=== PATIENT | male | born 1955 | race Caucasian/White ===

== ENCOUNTER 2016-03-09 14:25 | Inpatient (IN) | payer MEDICARE, OTHER ==
[2016-03-09 14:29] VITALS: BMI 23.3
--- NOTE | 2016-03-09 14:54 | PDOC ---
History of Present Illness - History of Present Illness Initial Comments: 03/09/16 15:22 The patient is a 60 year old male with significant past medical history of CAD, hypertension, hyperlipidemia who presents to the emergency department with headache, blurry vision, and chest pain for 1 day. The patient states that he is experiencing chest pain that radiates up to his left shoulder and left face. He also reports a headache and associated double vision and blurry vision. His headache is localized to behind his left eye and described as sharp. He reports he is seeing images that are on top of each other. The patient took Nitro for his chest pain with some relief. The patient states that he hasnt fallen but does report LOC when he was going to the bathroom this morning. He states he almost crashed his car this afternoon because of his blurry vision. The patient denies any associated shortness of breath. The patient denies cough, nasal congestion, recent illness, fevers, and chills. The patient denies any abdominal pain, nausea, vomiting. The patietn is an everyday drinker. He states his last drink was last night and he had about 3 beers. He says he drinks 3-4 drinks a day. Packing Clerk: Dr. Aleman <Carolee Urbina - Last Filed: 03/09/16 15:21> - General History Source: Patient, Old Records Exam Limitations: No Limitations <Virgie Conteh - Last Filed: 03/09/16 19:36> - General Chief Complaint: CVA/TIA Stated Complaint: CHEST PAIN Time Seen by Provider: 03/09/16 14:31 Past History <Carolee Urbina - Last Filed: 03/09/16 15:21> - Past Medical History Anemia: No Asthma: No Cancer: No Cardiac Disorders: Yes (CAD) CVA: No COPD: No (PT DENIES) CHF: No Dementia: No Diabetes: No GI Disorders: No Disorders: No HTN: Yes Hypercholesterolemia: No Liver Disease: No Seizures: No Thyroid Disease: No - Surgical History Abdominal Surgery: Yes (HERNIA) Appendectomy: No Cardiac Surgery: No Cholecystectomy: No Lung Surgery: No Neurologic Surgery: No Orthopedic Surgery: Yes (Back surgery) - Immunization History Immunization Up to Date: Yes - Psycho/Social/Smoking Cessation Hx Anxiety: No Suicidal Ideation: No Smoking History: Current every day smoker Have you smoked in the past 12 months: Yes Number of Cigarettes Smoked Daily: 2 Information on smoking cessation initiated: No 'Breaking Loose' booklet given: 04/21/13 Hx Alcohol Use: No Drug/Substance Use Hx: No Substance Use Type: None Hx Substance Use Treatment: No <Virgie Conteh - Last Filed: 03/09/16 19:36> - Past Medical History Allergies/Adverse Reactions: Allergies Allergy/AdvReac Type Severity Reaction Status Date / Time Penicillins Allergy Verified 03/09/16 14:29 octopus Allergy Severe Hives Uncoded 03/09/16 14:29 [place] Allergy Mild Hives Uncoded 03/09/16 14:29 Home Medications: Ambulatory Orders Aspirin Coated [Ecotrin -] 81 mg PO DAILY 04/21/13 Eszopiclone [Lunesta] 3 mg PO HS 04/21/13 Nebivolol HCl [Bystolic] 5 mg PO DAILY 04/21/13 Simvastatin [Zocor -] 10 mg PO HS 04/21/13 Clopidogrel Bisulfate [Plavix -] 75 mg PO DAILY #30 tablet 02/03/14 Fluocinonide 0.05% Cream [Lidex 0.05% Cream -] 1 applic TP DAILY #1 tube Tramadol HCl [Tramadol HCl ER] 300 mg PO DAILY #30 tbmp.24hr 02/03/14 Azelastine/Fluticasone [Dymista Nasal [place]] 23 gm NS DAILY 08/27/14 Clonidine HCl 0.1 mg PO DAILY 08/27/14 Esomeprazole Mag Trihydrate [Nexium] 40 mg PO DAILY 08/27/14 Oxycodone HCl/Acetaminophen [Percocet 10-325 mg Tablet] 1 - 2 tab PO Q6H Esomeprazole Mag Trihydrate [Nexium] 40 mg PO DAILY #7 capsule 02/02/15 Ondansetron [Zofran *Odt*] 8 mg SL TID #20 od.tablet 02/02/15 Review of Systems - Review of Systems Able to Perform ROS?: Yes Comments:: 03/09/16 15:22 GENERAL/CONSTITUTIONAL: No fever or chills. No weakness. HEAD, EYES, EARS, NOSE AND THROAT: No change in vision. No ear pain or discharge. No sore throat. CARDIOVASCULAR: No chest pain or shortness of breath. RESPIRATORY: No cough, wheezing, or hemoptysis. GASTROINTESTINAL: No nausea, vomiting, diarrhea or constipation. GENITOURINARY: No dysuria, frequency, or change in urination. MUSCULOSKELETAL: No joint or muscle swelling or pain. No neck or back pain. SKIN: No rash NEUROLOGIC: No headache, vertigo, loss of consciousness, or change in strength/ sensation. ENDOCRINE: No increased thirst. No abnormal weight change. HEMATOLOGIC/LYMPHATIC: No anemia, easy bleeding, or history of blood clots. ALLERGIC/IMMUNOLOGIC: No hives or skin allergy. <Carolee Urbina - Last Filed: 03/09/16 15:21> *Physical Exam - Vital Signs Last Vital Signs Temp Pulse Resp BP Pulse Ox 97.8 F 65 20 168/82 100 03/09/16 14:26 03/09/16 14:26 03/09/16 14:03/09/16 14:03/09/16 15:00 - Physical Exam Comments: 03/09/16 15:22 GENERAL: Awake, alert, and fully oriented, in no acute distress HEAD: No signs of trauma EYES: PERRLA, EOMI, sclera anicteric, conjunctiva clear ENT: Auricles normal inspection, hearing grossly normal, nares patent, oropharynx clear without exudates. Moist mucosa NECK: Normal ROM, supple, no lymphadenopathy, JVD, or masses LUNGS: Breath sounds equal, clear to auscultation bilaterally. No wheezes, and no crackles HEART: Regular rate and rhythm, normal S1 and S2, no murmurs, rubs or gallops ABDOMEN: Soft, nontender, normoactive bowel sounds. No guarding, no rebound. No masses EXTREMITIES: Normal range of motion, no edema. No clubbing or cyanosis. No cords, erythema, or tenderness NEUROLOGICAL: Cranial nerves II through XII grossly intact. 4+/5 strength in all extremities. Normal speech, normal gait SKIN: Warm, Dry, normal turgor, no rashes or lesions noted. <Carolee Urbina - Last Filed: 03/09/16 15:21> - Vital Signs Last Vital Signs Temp Pulse Resp BP Pulse Ox 97.8 F 65 20 168/82 100 03/09/16 14:26 03/09/16 14:03/09/16 14:26 03/09/16 14:26 03/09/16 14:26 <YadyVirgie - Last Filed: 03/09/16 19:36> ED Treatment Course - LABORATORY CBC & Chemistry Diagram: 03/09/16 15:00 03/09/16 15:00 <YadyVirgie - Last Filed: 03/09/16 19:36> Medical Decision Making - Medical Decision Making 03/09/16 15:38 60 y/o male with h/o HTN, non-obstructing CAD on cardiac cath in 2013 (at [facility]), PAD s/p left fem-tib bypass and left iliac stent, HLD and ETOH abuse who presents to the ED with c/o diplopia from the left eye and left-sided headache since yesterday as well as left-sided chest pain today. DDx includes but is not limited to: intra-cranial bleed, ischemia, mass, angina, electrolyte abnormality, dehydration, toxic/metabolic derangement, ACS. Plan: 1. EKG 2. Labs 3. CXR 4. CT head 5. Pain management 6. Observe and re-evaluate 03/09/16 18:24 Addendum: I spoke with Dr Rooney with the plan to admit him to observation for serial cardiac enzymes and cardiology consultation. However, the patient is angry and does not want to stay. I explained the risks and consequences to him leaving [facility] but he was still angry and I am uncertain as to why he is so angry and why he does not want to stay for admission. [see AMA note] 03/09/16 19:16 Addendum: The patient went upstairs to get food and returned to say that he will stay for admission. Will admit to tele observation as above. <Virgie Conteh - Last Filed: 03/09/16 19:36> *DC/Admit/Observation/Transfer - Attestations Scribe Attestion: 03/09/16 15:22 Documentation prepared by Carolee Urbina, acting as medical screener for Virgie Conteh MD. <Carolee Urbina - Last Filed: 03/09/16 15:21> - Discharge Dispostion Admit: Yes - Attestations Physician Attestion: 03/09/16 15:35 I, Dr. Virgie Conteh, attest that the scribes documentation that appears above has been prepared under my direction and personally reviewed by me in its entirety. I confirmed that the note above accurately reflects all work, treatment, procedures, and medical decision-making performed by me. <Virgie Conteh - Last Filed: 03/09/16 19:36> Diagnosis at time of Disposition: Headache, Chest pain - Discharge Dispostion Condition at time of disposition: Stable - Referrals Referrals: Mukesh Crenshaw [Primary Care Provider] -
[2016-03-09] MEDS ORDERED: ACETAMINOPHEN 500 MG TABLET (FP) PO ONE (14:55)
[2016-03-09] MEDS ORDERED: chlordiazePOXIDE HCL 25 MG CAPSULE PO ONE (14:56)
[2016-03-09 15:30] LABS: BASOPHIL 1.5 % (0-2.0); MCH 32.4 pg (25.7-33.7); MCHC 33.9 g/dl (32.0-35.9); MEAN CELL VOLUME 95.6 fl (80-96); PLATELET COUNT 313 K/MM3 (134-434); RDW 13.6 % (11.9-15.9); WHITE BLOOD COUNT 4.4 K/mm3 (4.0-10.0)
[2016-03-09 15:31] LABS: URINE APPEARANCE CLEAR; URINE BILIRUBIN NEGATIVE (NEGATIVE); URINE BLOOD NEGATIVE (NEGATIVE); URINE COLOR YELLOW; URINE GLUCOSE (UA) NEGATIVE (NEGATIVE); URINE KETONE NEGATIVE (NEGATIVE); URINE LEUK ESTERASE NEGATIVE (NEGATIVE); URINE NITRITE NEGATIVE (NEGATIVE); URINE PROTEIN NEGATIVE (NEGATIVE); URINE UROBILINOGEN 2.0 E.U/dl E.U./dl (0.2-1.0)
[2016-03-09] MEDS ORDERED: chlordiazePOXIDE HCL 25 MG CAPSULE ONE (16:13)
[2016-03-09] MEDS ORDERED: ACETAMINOPHEN 325 MG TABLET (FP) ONE (16:13)
[2016-03-09 16:21] LABS: ALBUMIN 3.7 g/dl (3.4-5.0); ANION GAP 9 (8-16); BILIRUBIN,TOTAL 0.5 mg/dL (0.2-1.0); CALCIUM 8.6 mg/dL (8.5-10.1); CO2 28 mmol/L (21-32); CREATININE 0.9 mg/dL (0.7-1.3); GLUCOSE,RANDOM 122 mg/dL (74-106); MAGNESIUM 2.2 mg/dL (1.8-2.4); PHOSPHOROUS 3.6 mg/dL (2.5-4.9); SGOT/AST 38 U/L (15-37); SGPT/ALT 27 U/L (12-78); TOT PROT 6.7 g/dl (6.4-8.2)
[2016-03-09 16:22] LABS: ALK PHOS 60 U/L (45-117); TROPONIN I 0.05 ng/ml (0.00-0.05)
[2016-03-09] MEDS ORDERED: MECLIZINE HCL 25 MG TABLET (FP) ONE (21:03)
[2016-03-09] MEDS ORDERED: ALBUTEROL SO4 0.083% IH SOL 2.5 MG/3 ML VIAL.NEB. NEB PRN (21:43)
[2016-03-09] MEDS ORDERED: MECLIZINE HCL 25 MG TABLET (FP) PO ONE (21:45)
[2016-03-09] MEDS ORDERED: MECLIZINE HCL 25 MG TABLET (FP) PO PRN (21:55)
[2016-03-09] MEDS ORDERED: ZOLPIDEM TARTRATE 5 MG TABLET PO ONE (22:00)
[2016-03-09] MEDS: HEPARIN NA (PORCINE) 5,000 UNITS/ML 1ML VIAL SQ SCH (22:23)
[2016-03-09 23:44] LABS: TROPONIN I 0.05 ng/ml (0.00-0.05)
--- NOTE | 2016-03-10 00:23 | EKG ---
Test Reason : Blood Pressure : / mmHG Vent. Rate : 059 BPM Atrial Rate : 059 BPM P-R Int : 180 ms QRS Dur : 072 ms QT Int : 446 ms P-R-T Axes : 049 -02 040 degrees QTc Int : 441 ms SINUS BRADYCARDIA ANTERIOR INFARCT , AGE UNDETERMINED ABNORMAL ECG WHEN COMPARED WITH ECG OF 30-DEC-2014 11:59, NO SIGNIFICANT CHANGE WAS FOUND Confirmed by JELLY GARZA MD ([id number]) on 03/10/2016 12:23:26 AM Referred By: Confirmed By:JELLY GARZA MD
[2016-03-10] MEDS ORDERED: amLODIPine BESYLATE 5 MG TABLET (FP) ONE (07:52)
[2016-03-10] MEDS ORDERED: PANTOPRAZOLE 40 MG TABLET (FP) ONE (07:52)
[2016-03-10] MEDS ORDERED: ASPIRIN 81 MG CHEWABLE TABLETS ONE (07:52)
[2016-03-10] MEDS ORDERED: cloNIDine HCL 0.1 MG TABLET ONE (07:52)
[2016-03-10] MEDS ORDERED: FOLIC ACID 1 MG TABLET (FP) ONE (07:53)
[2016-03-10] MEDS ORDERED: HEPARIN NA (PORCINE) 5,000 UNITS/ML 1ML VIAL ONE (07:53)
--- NOTE | 2016-03-10 09:15 | PN ---
Progress Note (short form) - Note Progress Note: Cardiology Consult Dictated Severe PAD s/p LE bypass Smoker HTN Non-obstuctive CAD Hyperlipidemia Now presents to ER with 4 days of gait instability, dizziness when walking and 2 episodes of substernal chest pressure with mixed features (atypical, some typical). REC: Multiple risk factors, established PAD and CAD now with multiple symptoms requiring evaluation. 1. Gait instability: rule out CVA, r/o vertebrobasilar insufficiency -Neuro evaluation -Carotid Duplex -Telemetry 2. Chest pain: -2 sets enzymes negative -ECG without acute changes -Echo -ASA -History of non-obstructive CAD on cath several years ago, however would plan for stress test once CVA ruled out. -Will likely need repeat head CT vs MRI.
[2016-03-10] MEDS: HEPARIN NA (PORCINE) 5,000 UNITS/ML 1ML VIAL SQ SCH (09:37)
[2016-03-10] MEDS ORDERED: ACLIDINIUM BROMIDE 400 MCG/INH AERO.POWD IH SCH (10:00)
[2016-03-10] MEDS ORDERED: amLODIPine BESYLATE 5 MG TABLET (FP) PO SCH (10:00)
[2016-03-10] MEDS ORDERED: FOLIC ACID 1 MG TABLET (FP) PO SCH (10:00)
[2016-03-10] MEDS ORDERED: cloNIDine HCL 0.1 MG TABLET PO SCH (10:00)
[2016-03-10] MEDS ORDERED: NEBIVOLOL 10 MG TABLET (FP) PO SCH (10:00)
[2016-03-10] MEDS ORDERED: PANTOPRAZOLE 40 MG TABLET (FP) PO SCH (10:00)
[2016-03-10] MEDS ORDERED: ASPIRIN COATED 81 MG TABLET.EC PO SCH (10:00)
[2016-03-10] MEDS ORDERED: NICOTINE 21 MG/24 HOURS TOPICAL PATCH TD SCH (10:00)
[2016-03-10 10:39] VITALS: BP 150/89; PULSE 64; TEMP 98
--- NOTE | 2016-03-10 11:10 | CONSULT ---
Consult Consult Specialty:: Neurology Reason for Consultation:: Diplopia, headache - History of Present Illness History of Present Illness: History obtained from records, patient refusing to cooperate with exam 60 year old man with medical history of CAD, hypertension, hyperlipidemia who presents to the emergency department with headache, blurry vision, and chest pain for one day. Patient reported chest pain, radiated to the left shoulder and left face. Accompanied by headache, and double vision. When asking further about double vision it appears patient notes horizontal diplopia but refuses to provide more information. It appears overall his headache has improved but still reports some vision changes. As per previous records was also noting some difficulty with balance CT head no acute abnormalities - Past Medical History Cardio/Vascular: Yes: CAD (non-obstructive on cath 06/2013 [facility]), HTN, Hyperlipdemia, Other (PAD severe with prior LLE interventions) - Past Surgical History Past Surgical History: Yes: Bypass (Left fem-tib Left Iliac stent) - Alcohol/Substance Use Hx Alcohol Use: No - Smoking History Smoking history: Current every day smoker Have you smoked in the past 12 months: Yes Aproximately how many cigarettes per day: 2 - Social History Usual Living Arrangement: Alone ADL: Independent History of Recent Travel: No Home Medications - Allergies Allergies/Adverse Reactions: Allergies Allergy/AdvReac Type Severity Reaction Status Date / Time Penicillins Allergy Verified 03/09/16 14:29 octopus Allergy Severe Hives Uncoded 03/09/16 14:29 [place] Allergy Mild Hives Uncoded 03/09/16 14:29 - Home Medications Home Medications: Ambulatory Orders Aspirin Coated [Ecotrin -] 81 mg PO DAILY 04/21/13 Nebivolol HCl [Bystolic] 10 mg PO DAILY 04/21/13 Clonidine HCl 0.1 mg PO DAILY 08/27/14 Albuterol 0.083% Nebulizer [place] [Ventolin 0.083%] 1 neb NEB QID PRN 03/09/16 Albuterol Sulfate [Proair Respiclick] 90 mcg IH ASDIR 03/09/16 Amlodipine Besylate 5 mg PO DAILY 03/09/16 Azelastine/Fluticasone [Dymista Nasal [place]] 23 gm NS PRN 03/09/16 Cholecalciferol (Vitamin D3) [Vitamin D3 -] 50,000 unit PO WEEKLY 03/09/16 Folic Acid 1 mg PO DAILY 03/09/16 Ibuprofen 600 mg PO PRN 03/09/16 Meloxicam [Mobic (Nf) -] 15 mg PO PRN 03/09/16 Nicotine Patch [Nicoderm Patch -] 1 patch TD DAILY 03/09/16 Omeprazole 40 mg PO DAILY 03/09/16 Pravastatin Sodium [Pravachol] 40 mg PO DAILY 03/09/16 Tiotropium [place] [Spiriva] 1 inh PO DAILY 03/09/16 Varenicline Tartrate [Chantix] 0.5 mg PO DAILY 03/09/16 Review of Systems Unable to obtain ROS, reason: refusing to cooperate Physical Exam Vital Signs: Vital Signs Temperature 98.0 F 03/10/16 09:00 Pulse Rate 64 03/10/16 09:00 Respiratory Rate 16 03/10/16 09:00 Blood Pressure 150/89 03/10/16 09:00 O2 Sat by Pulse Oximetry (%) 97 03/10/16 09:00 Constitutional: Yes: Well Nourished HENT: Yes: Normocephalic Neurological: Yes: Other (Exam limited due to patient cooperation Visual escobar full EOMI appear intact Face appears symmetric Moving all extremities spontaneously) Problem List - Problems (1) Alcoholism Code(s): F10.20 - ALCOHOL DEPENDENCE, UNCOMPLICATED (2) Chest pain Code(s): R07.9 - CHEST PAIN, UNSPECIFIED (3) Headache Code(s): R51 - HEADACHE Assessment/Plan 60 year old man with medical history of CAD, hypertension, hyperlipidemia who presents to the emergency department with headache, blurry vision, and chest pain for one day. Patient reported chest pain, radiated to the left shoulder and left face. Accompanied by headache, and double vision. When asking further about double vision it appears patient notes horizontal diplopia but refuses to provide more information. It appears overall his headache has improved but still reports some vision changes. As per previous records was also noting some difficulty with balance CT head no acute abnormalities Diplopia, unclear if binocular or monocular due to patient not cooperating MRI brain without contrast to rule out stroke MRA head without contrast If negative would recommend optho eval for vision changes
--- NOTE | 2016-03-10 11:24 | CONS ---
DATE OF CONSULTATION: DATE OF DICTATION: 03/10/2016 REQUESTING PHYSICIAN: Trae Pelaez MD REASON FOR CONSULTATION: Chest pain. HISTORY OF PRESENT ILLNESS: The patient is well known to me from previous hospitalizations and office practice. He is a 60-year-old gentleman noncompliant with followup, long history of smoking, hypertension, hyperlipidemia, nonobstructive coronary artery disease on previous catheterization, established severe peripheral arterial disease, status post lower extremity bypass, who presented to the ER for 2 separate complaints, including 4 days of gait instability and dizziness while walking, as well as 2 episodes of substernal chest pressure which occurred in the last 72 hours. Patient states that several days ago he felt an episode of substernal chest pressure, epigastric to central chest, nonradiating, while sitting, lasting 5 minutes without associated nausea, vomiting, or diaphoresis. Yesterday had another similar episode that resolved spontaneously but also was experiencing gait instability and describes falling off to 1 side with walking, prompting him to come to the emergency department. Head CT scan was negative in the ER. He is currently chest pain free and has had 2 sets of cardiac enzymes which are negative. His presenting EKG shows no acute ST elevations or depressions; there are nonspecific R-wave changes in V1, V2, and V3 which may be due to lead positional placement. PAST MEDICAL HISTORY: As above. ALLERGIES: He is allergic to PENICILLIN and SEVERAL FOODS INCLUDING OCTOPUS and TURKEY. HOME MEDICATIONS: Include: 1. Chantix. 2. Pravachol 40 mg daily. 3. Omeprazole 40 mg daily. 4. Nicotine patch. 5. Bystolic 10 mg daily. 6. Meloxicam p.r.n. 7. Folic acid. 8. Clonidine 0.1 daily. 9. Vitamin D3. 10. Aspirin 81 daily. 11. Norvasc 5 daily. 12. Albuterol p.r.n. FAMILY HISTORY: Noncontributory. SOCIAL HISTORY: Patient drinks alcohol "socially" and smokes approximately 1/2 pack per day but is trying to quit. PHYSICAL EXAMINATION: Vital Signs: Afebrile, temperature 98.3, pulse 78 and regular, blood pressure 154/73, O2 99% on room air. Neck: No bruits. Heart: S1, 2, regular rate and rhythm, no murmurs. Chest: Clear bilaterally. Abdomen: Soft, nontender. Extremities: No edema. Neurological: Grossly nonfocal. LABORATORIES: White count 4.4, hematocrit 36, platelets 313. Sodium 130, potassium 4.3, creatinine 0.9. LFTs were normal. CK and troponin are negative x2 sets. Toxicology screen was negative for alcohol. Urinalysis was negative. His EKG showed sinus bradycardia at 59 beats per minute with low amplitude of the R wave in V3 which may be due to lead positional change. Chest x-ray showed no infiltrates. IMPRESSION: A 60-year-old male with multiple cardiac risk factors, including nonobstructive coronary disease, hypertension, hyperlipidemia, established peripheral arterial disease, status post lower extremity bypass, active smoker, now presents to the emergency room with 4 days of gait instability and dizziness when walking as well as 2 episodes of substernal chest pressure with mixed features, some atypical, some typical. RECOMMENDATIONS: With his multiple risk factors and established peripheral arterial disease and nonobstructive coronary disease, patient now presents with several symptoms that require further evaluation. 1. Gait instability: Of new onset. Will need to rule out CVA, rule out vertebrobasilar insufficiency, rule out arrhythmia. - Neurologic evaluation to be ordered. - Carotid ultrasound. - Telemetry. 2. Chest pain: - Two sets of cardiac enzymes are negative. - ECG seems to be without acute changes. - Will obtain echocardiogram today for assessment of LV function. - Would continue aspirin therapy. - History of nonobstructive coronary disease on catheterization several years ago; however, would plan for stress test once CVA ruled out. - Will need repeat head CT or MRI, will defer to Neurology. Thank you for this consultation. TRINY VALERA M.D. [id number]
--- NOTE | 2016-03-10 12:57 | HP ---
Admitting History and Physical - Primary Care Physician PCP: Erin George - Admission Chief Complaint: CHEST PAIN History of Present Illness: 60 Y/O MALE WITH PROGRESSIVELY WORSENING CHEST PAIN, OBSERVATION STATUS WITH R/ O ACUTE CORONARY SYNDROME History Source: Patient - Past Medical History Cardiovascular: Yes: CAD (non-obstructive on cath 06/2013 [facility]), HTN, Hyperlipdemia, Other (PAD severe with prior LLE interventions) - Past Surgical History Past Surgical History: Yes: Bypass (Left fem-tib Left Iliac stent) - Smoking History Smoking history: Current every day smoker Have you smoked in the past 12 months: Yes Aproximately how many cigarettes per day: 2 - Alcohol/Substance Use Hx Alcohol Use: No - Social History ADL: Independent History of Recent Travel: No Home Medications - Allergies Allergies/Adverse Reactions: Allergies Allergy/AdvReac Type Severity Reaction Status Date / Time Penicillins Allergy Verified 03/09/16 14:29 octopus Allergy Severe Hives Uncoded 03/09/16 14:29 [place] Allergy Mild Hives Uncoded 03/09/16 14:29 - Home Medications Home Medications: Ambulatory Orders Aspirin Coated [Ecotrin -] 81 mg PO DAILY 04/21/13 Nebivolol HCl [Bystolic] 10 mg PO DAILY 04/21/13 Clonidine HCl 0.1 mg PO DAILY 08/27/14 Albuterol 0.083% Nebulizer [place] [Ventolin 0.083%] 1 neb NEB QID PRN 03/09/16 Albuterol Sulfate [Proair Respiclick] 90 mcg IH ASDIR 03/09/16 Amlodipine Besylate 5 mg PO DAILY 03/09/16 Azelastine/Fluticasone [Dymista Nasal [place]] 23 gm NS PRN 03/09/16 Cholecalciferol (Vitamin D3) [Vitamin D3 -] 50,000 unit PO WEEKLY 03/09/16 Folic Acid 1 mg PO DAILY 03/09/16 Ibuprofen 600 mg PO PRN 03/09/16 Meloxicam [Mobic (Nf) -] 15 mg PO PRN 03/09/16 Nicotine Patch [Nicoderm Patch -] 1 patch TD DAILY 03/09/16 Omeprazole 40 mg PO DAILY 03/09/16 Pravastatin Sodium [Pravachol] 40 mg PO DAILY 03/09/16 Tiotropium [place] [Spiriva] 1 inh PO DAILY 03/09/16 Varenicline Tartrate [Chantix] 0.5 mg PO DAILY 03/09/16 Review of Systems - Review of Systems Constitutional: reports: No Symptoms Eyes: reports: No Symptoms HENT: reports: No Symptoms Neck: reports: No Symptoms Cardiovascular: reports: Chest Pain Respiratory: reports: No Symptoms Gastrointestinal: reports: No Symptoms Genitourinary: reports: No Symptoms Musculoskeletal: reports: No Symptoms Integumentary: reports: No Symptoms Neurological: reports: No Symptoms Endocrine: reports: No Symptoms Hematology/Lymphatic: reports: No Symptoms Psychiatric: reports: No Symptoms Physical Examination Vital Signs: Vital Signs Temperature 98.0 F 03/10/16 09:00 Pulse Rate 64 03/10/16 09:00 Respiratory Rate 16 03/10/16 09:00 Blood Pressure 150/89 03/10/16 09:00 O2 Sat by Pulse Oximetry (%) 97 03/10/16 09:00 Constitutional: Yes: Mild Distress Eyes: Yes: WNL HENT: Yes: WNL Neck: Yes: WNL Cardiovascular: Yes: WNL Respiratory: Yes: WNL Gastrointestinal: Yes: WNL Renal/: Yes: WNL Musculoskeletal: Yes: WNL Extremities: Yes: WNL Edema: No Peripheral Pulses WNL: Yes Integumentary: Yes: WNL Wound/Incision: Yes: Clean/Dry Neurological: Yes: WNL ...Motor Strength: WNL Psychiatric: Yes: WNL Imaging - Results Chest X-ray: Report Reviewed Problem List - Problems (1) Acid reflux Code(s): K21.9 - GASTRO-ESOPHAGEAL REFLUX DISEASE WITHOUT ESOPHAGITIS Qualifiers: Esophagitis presence: esophagitis presence not specified Qualified Code (s): K21.9 - Gastro-esophageal reflux disease without esophagitis (2) CAD (coronary artery disease) Code(s): I25.10 - ATHSCL HEART DISEASE OF [place] CORONARY ARTERY W/O ANG PCTRS Qualifiers: Coronary Disease-Associated Artery/Lesion type: unspecified vessel or lesion type [place] vs. transplanted heart: [place] heart Associated angina: angina presence unspecified Qualified Code(s): I25.10 - Atherosclerotic heart disease of [place] coronary artery without angina pectoris (3) Chest pain Code(s): R07.9 - CHEST PAIN, UNSPECIFIED (4) Smoker Code(s): F17.200 - NICOTINE DEPENDENCE, UNSPECIFIED, UNCOMPLICATED Assessment/Plan CARDIAC ENZYMES X 2 SETS NEGATIVE CARDIOLGY EVAL SMOKING CESSATION PAIN CONTROL LIPID PROFILE DC WHEN CLEARED BY CARDIOLOGY
--- NOTE | 2016-03-10 12:58 | DS ---
Physical Examination Vital Signs: Vital Signs Temperature 98.0 F 03/10/16 09:00 Pulse Rate 64 03/10/16 09:00 Respiratory Rate 16 03/10/16 09:00 Blood Pressure 150/89 03/10/16 09:00 O2 Sat by Pulse Oximetry (%) 97 03/10/16 09:00 Findings/Remarks: SEE HNP Constitutional: Yes: No Distress Eyes: Yes: WNL HENT: Yes: WNL Neck: Yes: WNL Cardiovascular: Yes: WNL Respiratory: Yes: WNL Gastrointestinal: Yes: WNL Integumentary: Yes: WNL Neurological: Yes: WNL Psychiatric: Yes: Agitated Discharge Summary Reason For Visit: CHEST PAIN/HEADACHE SIGNED AMA Hospital Course: OBSERVATION STATUS AND SIGNED AMA AND AGITATED, WARNED OF POSSIBLE CARDIAC BUT INSISTED ON LEAVING Condition: Stable - Instructions Referrals: Mukesh Crenshaw [Primary Care Provider] - - Home Medications Comprehensive Discharge Medication List: Ambulatory Orders Aspirin Coated [Ecotrin -] 81 mg PO DAILY 04/21/13 Nebivolol HCl [Bystolic] 10 mg PO DAILY 04/21/13 Clonidine HCl 0.1 mg PO DAILY 08/27/14 Albuterol 0.083% Nebulizer [place] [Ventolin 0.083%] 1 neb NEB QID PRN 03/09/16 Albuterol Sulfate [Proair Respiclick] 90 mcg IH ASDIR 03/09/16 Amlodipine Besylate 5 mg PO DAILY 03/09/16 Azelastine/Fluticasone [Dymista Nasal [place]] 23 gm NS PRN 03/09/16 Cholecalciferol (Vitamin D3) [Vitamin D3 -] 50,000 unit PO WEEKLY 03/09/16 Folic Acid 1 mg PO DAILY 03/09/16 Ibuprofen 600 mg PO PRN 03/09/16 Meloxicam [Mobic (Nf) -] 15 mg PO PRN 03/09/16 Nicotine Patch [Nicoderm Patch -] 1 patch TD DAILY 03/09/16 Omeprazole 40 mg PO DAILY 03/09/16 Pravastatin Sodium [Pravachol] 40 mg PO DAILY 03/09/16 Tiotropium [place] [Spiriva] 1 inh PO DAILY 03/09/16 Varenicline Tartrate [Chantix] 0.5 mg PO DAILY 03/09/16
--- NOTE | 2016-03-10 14:11 | EKG ---
Test Reason : Blood Pressure : / mmHG Vent. Rate : 061 BPM Atrial Rate : 061 BPM P-R Int : 168 ms QRS Dur : 080 ms QT Int : 460 ms P-R-T Axes : 061 021 050 degrees QTc Int : 463 ms NORMAL SINUS RHYTHM NORMAL ECG WHEN COMPARED WITH ECG OF 09-MAR-2016 15:13, CRITERIA FOR ANTERIOR INFARCT ARE NO LONGER PRESENT T WAVE AMPLITUDE HAS INCREASED IN ANTERIOR LEADS Confirmed by GREG ALTAMIRANO, JELLY ([id number]) on 03/10/2016 2:11:18 PM Referred By: CATIE DELA CRUZ Confirmed By:JELLY GARZA MD
[2016-03-10] MEDS ORDERED: ATORVASTATIN CA 10 MG TABLET (FP) PO SCH (22:00)
== END 2016-03-10 11:00 | disposition left against medical advice (07) | DRG 313 ==
LOC: JER 14:25 → UNDOADMIN 19:57 → JERBED 19:57
PROVIDERS: ADMIT Family Medicine; ATTEND Family Medicine
DX: R07.9 Chest pain, unspecified (principal); I25.10 Atherosclerotic heart disease of native coronary artery without angina pectoris; R51 Headache; I73.9 Peripheral vascular disease, unspecified; H53.8 Other visual disturbances; I10 Essential (primary) hypertension; R42 Dizziness and giddiness; Z72.0 Tobacco use; Z98.61 Coronary angioplasty status; R26.81 Unsteadiness on feet; F10.20 Alcohol dependence, uncomplicated; H53.2 Diplopia
CPT/HCPCS: 36415; 70450-TC; 71010-TC; 80053; 80307; 81003; 82550; 83690; 83735; 84100; 84484; 85025; 93005; 93010; 93306-TC; 99285-25

== ENCOUNTER 2020-09-26 21:09 | Inpatient (IN) | payer OTHER ==
[2020-09-26 21:35] VITALS: BMI 21.6
[2020-09-26 23:08] LABS: BASO % 0.9 % (0-2.0); EOS % 2.5 % (0-4.5); HEMATOCRIT 26.6 % (35.4-49); HEMOGLOBIN 8.5 GM/dL (11.7-16.9); LYMPH % 7.7 % (8-40); MCH 27.4 pg (25.7-33.7); MCHC 31.9 g/dl (32.0-35.9); MEAN CELL VOLUME 85.9 fl (80-96); MEAN PLT VOLUME 7.3 fl (7.5-11.1); MONO % 9.2 % (3.8-10.2); NEUT % 79.7 % (42.8-82.8); PLATELET COUNT 585 10^3/uL (134-434); RDW 17.2 % (11.9-15.9); WHITE BLOOD COUNT 15.4 K/mm3 (4.0-10.0)
[2020-09-26 23:43] LABS: ALBUMIN 3.2 g/dl (3.4-5.0); BILIRUBIN,TOTAL 0.2 mg/dL (0.2-1); BLOOD UREA NITROGEN 6.1 mg/dL (7-18); CALCIUM 8.6 mg/dL (8.5-10.1); CREATININE 0.7 mg/dL (0.55-1.3); MAGNESIUM 2.2 mg/dL (1.8-2.4); N-TERMINAL BNP 631.3 pg/ml (5-125); TOT PROT 6.2 g/dl (6.4-8.2)
[2020-09-26] MEDS ORDERED: ASPIRIN 81 MG CHEWABLE TABLETS PO ONE (23:59)
[2020-09-27] MEDS ORDERED: ASPIRIN 81 MG CHEWABLE TABLETS ONE (00:32)
[2020-09-27] MEDS ORDERED: ACETAMINOPHEN 1000 MG/100 ML VIAL (NON FORMULARY) IVPB ONE (00:56)
[2020-09-27] MEDS ORDERED: ACETAMINOPHEN INJECTION 100 ML IVPB ONE (00:58)
[2020-09-27] MEDS ORDERED: ACETAMINOPHEN 325 MG TABLET (FP) ONE ×3 (04:13→21:13)
[2020-09-27] MEDS ORDERED: MELATONIN 5 MG TABLETS PO ONE (04:20)
[2020-09-27] MEDS ORDERED: MELATONIN 5 MG TABLETS ONE (04:32)
[2020-09-27 04:36] LABS: HEMOGLOBIN 8.1 GM/dL (11.7-16.9); MCH 27.7 pg (25.7-33.7); MCHC 32.6 g/dl (32.0-35.9); MEAN PLT VOLUME 7.4 fl (7.5-11.1); PLATELET COUNT 517 10^3/uL (134-434); RBC 2.94 M/mm3 (4.00-5.60); RDW 17.1 % (11.9-15.9); WHITE BLOOD COUNT 12.8 K/mm3 (4.0-10.0)
[2020-09-27 04:46] LABS: CALCIUM 8.6 mg/dL (8.5-10.1)
[2020-09-27 04:47] LABS: ALBUMIN 2.9 g/dl (3.4-5.0); BLOOD UREA NITROGEN 5.6 mg/dL (7-18)
[2020-09-27 04:49] LABS: MAGNESIUM 2.2 mg/dL (1.8-2.4)
[2020-09-27 04:52] LABS: BILIRUBIN,TOTAL 0.3 mg/dL (0.2-1); CREATININE 0.7 mg/dL (0.55-1.3)
[2020-09-27 04:53] LABS: TOT PROT 5.9 g/dl (6.4-8.2)
[2020-09-27] MEDS: ACETAMINOPHEN 325 MG TABLET (FP) PO PRN ×3 (06:12→21:26)
[2020-09-27 08:18] LABS: EPI CELLS 3 /uL (0-25.1); HYALINE CASTS 0 /uL (0-3.1); PH,URINE 5.5 (5.0-8.0); URINE APPEARANCE CLEAR; URINE BACTERIA 28 /uL (0-1359); URINE BILIRUBIN NEGATIVE (NEGATIVE); URINE COLOR YELLOW; URINE GLUCOSE (UA) NEGATIVE (NEGATIVE); URINE KETONE NEGATIVE (NEGATIVE); URINE LEUK ESTERASE TRACE (NEGATIVE); URINE NITRITE NEGATIVE (NEGATIVE); URINE PROTEIN NEGATIVE (NEGATIVE); URINE RBC 1 /uL (0-23.9); URINE UROBILINOGEN 0.2 mg/dL (0.2-1.0); URINE WBC 28 /uL (0-25.8)
[2020-09-27] MEDS ORDERED: ENOXAPARIN NA (PORCINE) 40 MG/0.4 ML DISP.SYRIN SQ ONE (09:03)
[2020-09-27] MEDS: ENOXAPARIN NA (PORCINE) 40 MG/0.4 ML DISP.SYRIN SQ SCH (09:49)
[2020-09-27] MEDS ORDERED: NICOTINE 7 MG/24 HOURS TOPICAL PATCH TD SCH (10:00)
[2020-09-27] MEDS ORDERED: FUROSEMIDE 40 MG TABLET (FP) ONE (12:03)
[2020-09-27] MEDS: BUDESONIDE/FORMETEROL FUMARATE 160/4.5 mcg INHALER IH SCH ×2 (12:31→22:08)
[2020-09-27] MEDS: FUROSEMIDE 40 MG TABLET (FP) PO SCH (12:31)
[2020-09-27] MEDS ORDERED: ALBUTEROL SO4 2.5/IPRATROPIUM 0.5 INH SOL 3 ML VIAL.NEB. NEB PRN (14:00)
[2020-09-28] MEDS ORDERED: ACETAMINOPHEN 325 MG TABLET (FP) ONE (04:21)
[2020-09-28] MEDS: ACETAMINOPHEN 325 MG TABLET (FP) PO PRN (04:30)
[2020-09-28] MEDS ORDERED: FUROSEMIDE 40 MG TABLET (FP) ONE (09:08)
[2020-09-28] MEDS ORDERED: ENOXAPARIN NA (PORCINE) 40 MG/0.4 ML DISP.SYRIN SQ ONE (09:08)
[2020-09-28] MEDS: BUDESONIDE/FORMETEROL FUMARATE 160/4.5 mcg INHALER IH SCH (09:17)
[2020-09-28] MEDS: ENOXAPARIN NA (PORCINE) 40 MG/0.4 ML DISP.SYRIN SQ SCH (09:17)
[2020-09-28] MEDS: FUROSEMIDE 40 MG TABLET (FP) PO SCH (09:17)
[2020-09-28 12:40] VITALS: BP 129/65; PULSE 69; TEMP 98.2
== END 2020-09-28 14:17 | disposition left against medical advice (07) | DRG 812 ==
LOC: JER 21:09 → JERBED 09-27 02:01
PROVIDERS: ADMIT Internal Medicine; ATTEND Family Medicine
DX: D64.9 Anemia, unspecified (principal); I69.354 Hemiplegia and hemiparesis following cerebral infarction affecting left non-dominant side; I25.10 Atherosclerotic heart disease of native coronary artery without angina pectoris; I10 Essential (primary) hypertension; R94.31 Abnormal electrocardiogram [ECG] [EKG]; D72.829 Elevated white blood cell count, unspecified; F17.210 Nicotine dependence, cigarettes, uncomplicated; E78.5 Hyperlipidemia, unspecified; I73.9 Peripheral vascular disease, unspecified; R10.12 Left upper quadrant pain; D47.3 Essential (hemorrhagic) thrombocythemia; J44.9 Chronic obstructive pulmonary disease, unspecified; Z88.0 Allergy status to penicillin
CPT/HCPCS: 36415; 71045-TC-FY; 80053; 80061; 81003; 82550; 82728; 83036; 83540; 83550; 83735; 83880; 84436; 84443; 84484; 85025; 85027; 93005; 93010; 93970-TC; 99285-25; C9803; J0131; U0003; U0005

== ENCOUNTER 2020-12-03 17:07 | Inpatient (IN) | payer OTHER ==
[2020-12-03] MEDS ORDERED: ACETAMINOPHEN 500 MG TABLET (FP) PO ONE (18:27)
[2020-12-03] MEDS ORDERED: HEPARIN NA (PORCINE) 5,000 UNITS/ML 1ML VIAL IVPUSH PRN ×3 (18:41→18:59)
[2020-12-03] MEDS ORDERED: HEPARIN - 25,000 UNIT in SODIUM CHLORIDE 495 ML IV SCH (18:45)
[2020-12-03] MEDS ORDERED: POLYETHYLENE GLYCOL 3350 119 GM BTL PO PRN (19:28)
[2020-12-03] MEDS ORDERED: DOCUSATE SODIUM 100 MG CAPSULE (FP) PO PRN (19:28)
[2020-12-03] MEDS ORDERED: HEPARIN INFUSION - 25,000 UNITS/500 ML INFUS.BAG IVPB ONE (19:38)
[2020-12-03 19:45] LABS: BASO % 0.5 % (0-2.0); EOS % 2.6 % (0-4.5); HEMATOCRIT 30.6 % (35.4-49); HEMOGLOBIN 9.6 GM/dL (11.7-16.9); LYMPH % 11.6 % (8-40); MCHC 31.5 g/dl (32.0-35.9); MEAN PLT VOLUME 7.7 fl (7.5-11.1); MONO % 8.2 % (3.8-10.2); NEUT % 77.1 % (42.8-82.8); PLATELET COUNT 410 10^3/uL (134-434); RBC 4.19 M/mm3 (4.00-5.60); RDW 19.8 % (11.9-15.9); WHITE BLOOD COUNT 10.7 K/mm3 (4.0-10.0)
[2020-12-03 19:54] LABS: INR 1.08 (0.83-1.09); PROTHROMBIN TIME (PATIENT) 12.1 SEC (9.7-13.0)
[2020-12-03 19:56] LABS: ACTIVATED PTT 25.5 SECONDS (25.2-36.5)
[2020-12-03 20:10] LABS: CALCIUM 9.1 mg/dL (8.5-10.1)
[2020-12-03 20:11] LABS: ALBUMIN 3.6 g/dl (3.4-5.0); BLOOD UREA NITROGEN 25.2 mg/dL (7-18)
[2020-12-03 20:14] LABS: CREATININE 0.8 mg/dL (0.55-1.3)
[2020-12-03 20:16] LABS: BILIRUBIN,TOTAL 0.2 mg/dL (0.2-1); TOT PROT 7.4 g/dl (6.4-8.2)
[2020-12-03] MEDS ORDERED: ALBUTEROL SO4 0.083% IH SOL 2.5 MG/3 ML VIAL.NEB. NEB PRN (21:15)
[2020-12-03] MEDS ORDERED: MAG HYDROX/AL HYDROX/SIMETH 30 ML UNIT-DOSE CUP PO PRN (21:31)
[2020-12-03] MEDS: NICOTINE 7 MG/24 HOURS TOPICAL PATCH TD SCH (23:18)
[2020-12-04 00:34] VITALS: BMI 19.3
[2020-12-04] MEDS: BUDESONIDE/FORMETEROL FUMARATE 160/4.5 mcg INHALER IH SCH ×2 (01:23→09:49)
[2020-12-04 06:56] VITALS: TEMP 98
[2020-12-04 09:00] LABS: HEMATOCRIT 32.4 % (35.4-49); HEMOGLOBIN 10.2 GM/dL (11.7-16.9); MCHC 31.4 g/dl (32.0-35.9); MEAN CELL VOLUME 73.3 fl (80-96); MEAN PLT VOLUME 7.5 fl (7.5-11.1); PLATELET COUNT 440 10^3/uL (134-434); RBC 4.42 M/mm3 (4.00-5.60); RDW 19.5 % (11.9-15.9); WHITE BLOOD COUNT 7.4 K/mm3 (4.0-10.0)
[2020-12-04 09:24] LABS: ALBUMIN 3.5 g/dl (3.4-5.0); BLOOD UREA NITROGEN 17.3 mg/dL (7-18)
[2020-12-04 09:27] LABS: CREATININE 0.7 mg/dL (0.55-1.3)
[2020-12-04 09:28] LABS: BILIRUBIN,TOTAL 0.3 mg/dL (0.2-1); TOT PROT 7.4 g/dl (6.4-8.2)
[2020-12-04] MEDS ORDERED: PT OWN MED DRAWER 7, Y5N ONE (09:29)
[2020-12-04] MEDS: NICOTINE 7 MG/24 HOURS TOPICAL PATCH TD SCH (09:42)
[2020-12-04] MEDS ORDERED: PANTOPRAZOLE 40 MG TABLET PO SCH (10:00)
[2020-12-04] MEDS ORDERED: NEBIVOLOL 10 MG TABLET (FP) PO SCH (10:00)
[2020-12-04] MEDS ORDERED: FOLIC ACID 1 MG TABLET (FP) PO SCH (10:00)
[2020-12-04] MEDS ORDERED: cloNIDine HCL 0.1 MG TABLET PO SCH (10:00)
[2020-12-04 12:07] LABS: ANISOCYTOSIS 1+; MACROCYTOSIS 0; PLATELET ESTIMATE NORMAL; TARGET CELLS 2+; TEAR DROP CELLS 1+
[2020-12-04 13:14] VITALS: BP 138/74; PULSE 98
== END 2020-12-04 15:24 | disposition left against medical advice (07) | DRG 300 ==
LOC: JER 17:07 → JERBED 18:26 → J7W 22:46
PROVIDERS: ADMIT Internal Medicine; ATTEND Family Medicine
DX: I73.9 Peripheral vascular disease, unspecified (principal); I69.354 Hemiplegia and hemiparesis following cerebral infarction affecting left non-dominant side; I10 Essential (primary) hypertension; I25.10 Atherosclerotic heart disease of native coronary artery without angina pectoris; I77.1 Stricture of artery; E78.5 Hyperlipidemia, unspecified; K21.9 Gastro-esophageal reflux disease without esophagitis; F17.210 Nicotine dependence, cigarettes, uncomplicated
CPT/HCPCS: 36415; 71045-TC-FY; 80053; 85025; 85610; 85730; 86850; 86900; 86901; 93005; 93010; 99285-25; C9803; G0378; J0735; J1644; U0003; U0005

== ENCOUNTER 2020-12-08 13:43 | Inpatient (IN) | payer OTHER ==
[2020-12-08 14:03] VITALS: BMI 23.3
[2020-12-08 15:28] LABS: BASO % 0.7 % (0-2.0); EOS % 2.5 % (0-4.5); HEMATOCRIT 31.5 % (35.4-49); HEMOGLOBIN 9.8 GM/dL (11.7-16.9); LYMPH % 14.2 % (8-40); MCH 23.1 pg (25.7-33.7); MCHC 31.2 g/dl (32.0-35.9); MEAN CELL VOLUME 74.1 fl (80-96); MEAN PLT VOLUME 7.9 fl (7.5-11.1); MONO % 8.8 % (3.8-10.2); NEUT % 73.8 % (42.8-82.8); PLATELET COUNT 417 10^3/uL (134-434); RBC 4.26 M/mm3 (4.00-5.60); RDW 20.8 % (11.9-15.9); WHITE BLOOD COUNT 8.1 K/mm3 (4.0-10.0)
[2020-12-08 15:32] LABS: INR 1.08 (0.83-1.09); PROTHROMBIN TIME (PATIENT) 12.6 SEC (9.7-13.0)
[2020-12-08 15:35] LABS: ACTIVATED PTT 27.5 SECONDS (25.2-36.5)
[2020-12-08 15:39] LABS: CALCIUM 9.1 mg/dL (8.5-10.1)
[2020-12-08 15:40] LABS: ALBUMIN 3.6 g/dl (3.4-5.0); BLOOD UREA NITROGEN 18.8 mg/dL (7-18)
[2020-12-08 15:43] LABS: CREATININE 0.7 mg/dL (0.55-1.3)
[2020-12-08 15:44] LABS: BILIRUBIN,TOTAL 0.2 mg/dL (0.2-1); TOT PROT 7.4 g/dl (6.4-8.2)
[2020-12-08] MEDS ORDERED: morphine CARPU-JECT 2 MG/1 ML DISP.SYRIN IVPUSH ONE (15:47)
[2020-12-08] MEDS ORDERED: LIDOCAINE 5% TOPICAL PATCH TP ONE (15:47)
[2020-12-08] MEDS ORDERED: morphine SULFATE 4 MG/ML VIAL IVPUSH ONE ×2 (15:55→16:15)
[2020-12-08] MEDS ORDERED: morphine SULFATE 4 MG/ML VIAL ONE (15:58)
[2020-12-08] MEDS ORDERED: LIDOCAINE 5% TOPICAL PATCH ONE (15:59)
[2020-12-08 16:22] LABS: ANISOCYTOSIS 2+; MACROCYTOSIS 0; PLATELET ESTIMATE NORMAL; TARGET CELLS 1+
[2020-12-08] MEDS ORDERED: SODIUM CHLORIDE 0.9% 500 ML INFUS.BAG IV ONE ×2 (16:26→18:04)
[2020-12-08] MEDS ORDERED: ALBUTEROL SO4 0.083% IH SOL 2.5 MG/3 ML VIAL.NEB. NEB PRN (17:36)
[2020-12-08] MEDS ORDERED: PATIENT'S OWN MEDICATION (NON-FORMULARY) (Pravastatin Sodium [Pravachol] 40 MG Tablet) PO SCH (17:45)
[2020-12-08] MEDS: ACETAMINOPHEN 325 MG TABLET (FP) PO SCH (20:30)
[2020-12-08] MEDS ORDERED: LIDOCAINE PATCH REMOVAL MC SCH (22:00)
[2020-12-08] MEDS ORDERED: ATORVASTATIN CA 10 MG TABLET (FP) PO SCH (22:00)
[2020-12-08] MEDS: HEPARIN NA (PORCINE) 5,000 UNITS/ML 1ML VIAL SQ SCH (22:26)
[2020-12-08] MEDS ORDERED: ZOLPIDEM TARTRATE 5 MG TABLET PO ONE (22:48)
[2020-12-09 08:45] LABS: BASO % 0.6 % (0-2.0); HEMATOCRIT 30.2 % (35.4-49); HEMOGLOBIN 9.5 GM/dL (11.7-16.9); LYMPH % 15.3 % (8-40); MCH 23.3 pg (25.7-33.7); MCHC 31.4 g/dl (32.0-35.9); MEAN CELL VOLUME 74.1 fl (80-96); MEAN PLT VOLUME 8.2 fl (7.5-11.1); MONO % 10.4 % (3.8-10.2); NEUT % 68.7 % (42.8-82.8); PLATELET COUNT 375 10^3/uL (134-434); RBC 4.08 M/mm3 (4.00-5.60); RDW 20.3 % (11.9-15.9); WHITE BLOOD COUNT 6.8 K/mm3 (4.0-10.0)
[2020-12-09 09:09] LABS: BLOOD UREA NITROGEN 16.9 mg/dL (7-18); CALCIUM 9.1 mg/dL (8.5-10.1)
[2020-12-09 09:12] LABS: CREATININE 0.7 mg/dL (0.55-1.3)
[2020-12-09 09:13] LABS: BILIRUBIN,TOTAL 0.4 mg/dL (0.2-1)
[2020-12-09 09:14] LABS: TOT PROT 6.5 g/dl (6.4-8.2)
[2020-12-09] MEDS: HEPARIN NA (PORCINE) 5,000 UNITS/ML 1ML VIAL SQ SCH ×2 (09:24→21:08)
[2020-12-09] MEDS ORDERED: PATIENT'S OWN MEDICATION (NON-FORMULARY) (Tiotropium Bromide [Spiriva] 1 PUFF Inh) PO SCH (10:00)
[2020-12-09] MEDS ORDERED: NICOTINE 21 MG/24 HOURS TOPICAL PATCH TD SCH (10:00)
[2020-12-09] MEDS ORDERED: PANTOPRAZOLE 40 MG TABLET PO SCH (10:00)
[2020-12-09] MEDS ORDERED: FOLIC ACID 1 MG TABLET (FP) PO SCH (10:00)
[2020-12-09] MEDS ORDERED: ASPIRIN COATED 81 MG TABLET.EC PO SCH (10:00)
[2020-12-09] MEDS ORDERED: NEBIVOLOL 5 MG TABLET (FP) PO SCH (10:00)
[2020-12-09] MEDS ORDERED: amLODIPine BESYLATE 5 MG TABLET (FP) PO SCH (10:00)
[2020-12-09] MEDS ORDERED: cloNIDine HCL 0.1 MG TABLET PO SCH (10:00)
[2020-12-09] MEDS ORDERED: TIOTROPIUM BROMIDE 2.5 MCG (SPIRIVA) RESPIMAT INHALER IH SCH (10:00)
[2020-12-09] MEDS ORDERED: CEFAZOLIN 2 GM in DEXTROSE 5%-WATER - 100 ML IVPB ONE (13:00)
[2020-12-09] MEDS ORDERED: HEPARIN NA (PORCINE) 5,000 UNITS/ML 1ML VIAL ONE (13:13)
[2020-12-09] MEDS ORDERED: POVIDONE-IODINE OINTMENT 10% - 28.4 GM TUBE ONE (13:13)
[2020-12-09] MEDS ORDERED: MIDAZOLAM HCL 2 MG/2 ML SINGLE DOSE VIAL ONE ×2 (15:11)
[2020-12-09] MEDS ORDERED: PROPOFOL 20 ML ONE ×4 (15:11→17:44)
[2020-12-09] MEDS ORDERED: ONDANSETRON 4 MG/2 ML VIAL IVPUSH PRN ×2 (15:47→18:32)
[2020-12-09] MEDS ORDERED: ceFAZolin SODIUM 1 GM VIAL ONE (15:48)
[2020-12-09] MEDS ORDERED: ceFAZolin SODIUM 1 GM VIAL IVPB ONE (15:50)
[2020-12-09] MEDS ORDERED: SEVOFLURANE 250 ML BTL ONE (15:53)
[2020-12-09] MEDS ORDERED: LACTATED RINGERS SOLUTION 1,000 ML IV SCH ×2 (16:00→18:32)
[2020-12-09] MEDS ORDERED: ALBUTEROL SO4 0.083% IH SOL 2.5 MG/3 ML VIAL.NEB. NEB PRN (18:32)
[2020-12-09] MEDS ORDERED: oxyCODONE HCL 5 MG TABLET PO PRN ×2 (18:32)
[2020-12-09] MEDS ORDERED: morphine SULFATE 4 MG/ML VIAL IVPUSH ONE (21:57)
[2020-12-09] MEDS ORDERED: ATORVASTATIN CA 10 MG TABLET (FP) PO SCH (22:00)
[2020-12-09] MEDS ORDERED: LIDOCAINE PATCH REMOVAL MC SCH (22:00)
[2020-12-09] MEDS ORDERED: MELATONIN 5 MG TABLETS PO ONE (22:02)
[2020-12-10] MEDS ORDERED: ceFAZolin 2 GRAM PREMIX BAG IVPB SCH ×2 (00:01)
[2020-12-10] MEDS: ACETAMINOPHEN 325 MG TABLET (FP) PO SCH ×5 (00:46→21:13)
[2020-12-10] MEDS: CEFAZOLIN 2 GM in DEXTROSE 5%-WATER - 100 ML IVPB SCH ×3 (00:46→17:16)
[2020-12-10] MEDS ORDERED: PT OWN MED DRAWER 7, Y5N ONE ×2 (09:10→17:12)
[2020-12-10] MEDS: HEPARIN NA (PORCINE) 5,000 UNITS/ML 1ML VIAL SQ SCH (09:14)
[2020-12-10] MEDS ORDERED: FOLIC ACID 1 MG TABLET (FP) PO SCH (10:00)
[2020-12-10] MEDS ORDERED: RIVAROXABAN 2.5 MG TABLET PO SCH (10:00)
[2020-12-10] MEDS ORDERED: PANTOPRAZOLE 40 MG TABLET PO SCH (10:00)
[2020-12-10] MEDS ORDERED: TIOTROPIUM BROMIDE 2.5 MCG (SPIRIVA) RESPIMAT INHALER IH SCH (10:00)
[2020-12-10] MEDS ORDERED: NEBIVOLOL 10 MG TABLET (FP) PO SCH (10:00)
[2020-12-10] MEDS ORDERED: ASPIRIN COATED 81 MG TABLET.EC PO SCH (10:00)
[2020-12-10] MEDS ORDERED: NICOTINE 21 MG/24 HOURS TOPICAL PATCH TD SCH (10:00)
[2020-12-10] MEDS ORDERED: amLODIPine BESYLATE 5 MG TABLET (FP) PO SCH (10:00)
[2020-12-10] MEDS ORDERED: cloNIDine HCL 0.1 MG TABLET PO SCH (10:00)
[2020-12-10] MEDS ORDERED: ALBUTEROL SO4 0.083% IH SOL 2.5 MG/3 ML VIAL.NEB. NEB PRN (11:33)
[2020-12-10] MEDS ORDERED: LACTATED RINGERS SOLUTION 1,000 ML IV SCH (11:33)
[2020-12-10] MEDS ORDERED: oxyCODONE HCL 5 MG TABLET PO PRN ×2 (11:33)
[2020-12-10] MEDS: RIVAROXABAN 2.5 MG TABLET PO SCH (21:14)
[2020-12-10] MEDS ORDERED: LIDOCAINE PATCH REMOVAL MC SCH (22:00)
[2020-12-10] MEDS ORDERED: HEPARIN NA (PORCINE) 5,000 UNITS/ML 1ML VIAL SQ SCH (22:00)
[2020-12-10] MEDS ORDERED: ATORVASTATIN CA 10 MG TABLET (FP) PO SCH (22:00)
[2020-12-11] MEDS: ACETAMINOPHEN 325 MG TABLET (FP) PO SCH (00:07)
[2020-12-11] MEDS: CEFAZOLIN 2 GM in DEXTROSE 5%-WATER - 100 ML IVPB SCH ×2 (00:08→09:38)
[2020-12-11 08:47] VITALS: TEMP 98.6
[2020-12-11] MEDS ORDERED: PT OWN MED DRAWER 7, Y5N ONE (09:34)
[2020-12-11] MEDS: RIVAROXABAN 2.5 MG TABLET PO SCH (09:41)
[2020-12-11] MEDS ORDERED: PANTOPRAZOLE 40 MG TABLET PO SCH (10:00)
[2020-12-11] MEDS ORDERED: ASPIRIN COATED 81 MG TABLET.EC PO SCH (10:00)
[2020-12-11] MEDS ORDERED: TIOTROPIUM BROMIDE 2.5 MCG (SPIRIVA) RESPIMAT INHALER IH SCH (10:00)
[2020-12-11] MEDS ORDERED: NEBIVOLOL 10 MG TABLET (FP) PO SCH (10:00)
[2020-12-11] MEDS ORDERED: NICOTINE 21 MG/24 HOURS TOPICAL PATCH TD SCH (10:00)
[2020-12-11] MEDS ORDERED: amLODIPine BESYLATE 5 MG TABLET (FP) PO SCH (10:00)
[2020-12-11] MEDS ORDERED: FOLIC ACID 1 MG TABLET (FP) PO SCH (10:00)
[2020-12-11] MEDS ORDERED: cloNIDine HCL 0.1 MG TABLET PO SCH (10:00)
[2020-12-11 11:15] VITALS: PULSE 82
[2020-12-11 11:41] VITALS: BP 143/71
== END 2020-12-11 12:41 | disposition home or self-care (01) | DRG 253 ==
LOC: JER 13:43 → JERBED 14:43 → J4W 19:38 → JERBED 19:38 → J6S 21:16 → JICU 12-09 16:33
PROVIDERS: ADMIT Family Medicine; ATTEND Family Medicine
PROC: 04CK0ZZ Extirpation of Matter from Right Femoral Artery, Open Approach (ICD-10-PCS; 2020-12-09)
PROC: 041K0JH Bypass Right Femoral Artery to Right Femoral Artery with Synthetic Substitute, Open Approach (ICD-10-PCS; principal; 2020-12-09 13:00)
DX: I74.5 Embolism and thrombosis of iliac artery (principal); I69.354 Hemiplegia and hemiparesis following cerebral infarction affecting left non-dominant side; I73.9 Peripheral vascular disease, unspecified; I25.10 Atherosclerotic heart disease of native coronary artery without angina pectoris; E78.5 Hyperlipidemia, unspecified
CPT/HCPCS: 36415; 71045-TC-FY; 80053; 82550; 82553; 84484; 85025; 85610; 85730; 86850; 86900; 86901; 86922; 88304-TC; 93005; 93010; 94760; 97116-GP; 97161-GP; 99285-25; C9803; J0735; J1644; U0003; U0005

== ENCOUNTER 2021-07-28 15:21 | Day surgery (SDC) | payer OTHER ==
[2021-07-28] MEDS ORDERED: FERRIC CARBOXYMALTOSE 750 MG in SODIUM CHLORIDE 250 ML IVPB SCH (17:00)
[2021-07-28 17:48] VITALS: BP 117/60; PULSE 80; TEMP 98.2
== END 2021-07-28 17:40 | disposition home or self-care (01) ==
LOC: MERGE 15:21 → FINFUSION 15:21 → FM/S 15:26 → FINFUSION 17:40
PROVIDERS: ATTEND Family Medicine
PROC: 3E033GC Introduction of Other Therapeutic Substance into Peripheral Vein, Percutaneous Approach (ICD-10-PCS; principal; 2021-07-28)
DX: D50.9 Iron deficiency anemia, unspecified (principal)
CPT/HCPCS: 96365; J1439

== ENCOUNTER 2021-12-19 15:01 | Inpatient (IN) | payer OTHER ==
[2021-12-19 18:18] LABS: BASO % 0.2 % (0-2.0); EOS % 0.1 % (0-4.5); HEMATOCRIT 33.3 % (35.4-49); HEMOGLOBIN 11.1 GM/dL (11.7-16.9); LYMPH % 6.2 % (8-40); MCH 29.8 pg (25.7-33.7); MCHC 33.2 g/dl (32.0-35.9); MEAN CELL VOLUME 89.8 fl (80-96); MONO % 7.1 % (3.8-10.2); NEUT % 86.4 % (42.8-82.8); PLATELET COUNT 350 10^3/uL (134-434); RBC 3.71 M/mm3 (4.00-5.60); RDW 14.4 % (11.9-15.9); WHITE BLOOD COUNT 8.9 K/mm3 (4.0-10.0)
[2021-12-19] MEDS ORDERED: VANCOMYCIN 1,000 MG in DEXTROSE 5%-WATER - 250 ML IVPB ONE (18:29)
[2021-12-19] MEDS ORDERED: CEFEPIME HCL/D5W 1 GM/50 ML BAG IVPB ONE (18:30)
[2021-12-19 19:00] LABS: CALCIUM 9.5 mg/dL (8.5-10.1)
[2021-12-19] MEDS ORDERED: morphine CARPU-JECT 4 MG/1 ML DISP.SYRIN IVPUSH ONE (19:00)
[2021-12-19 19:01] LABS: ALBUMIN 3.3 g/dl (3.4-5.0); BLOOD UREA NITROGEN 18.1 mg/dL (7-18)
[2021-12-19 19:04] LABS: CREATININE 1.1 mg/dL (0.55-1.3)
[2021-12-19 19:05] LABS: BILIRUBIN,TOTAL 0.3 mg/dL (0.2-1); TOT PROT 7.1 g/dl (6.4-8.2)
[2021-12-19] MEDS ORDERED: morphine SULFATE 4 MG/ML VIAL ONE (19:09)
[2021-12-19] MEDS ORDERED: VANCOMYCIN/WATER FOR INJ (PEG) 1,000 MG/200 ML BAG IVPB ONE (19:10)
[2021-12-19 19:36] LABS: ERYTHROCYTE SEDIMENTATION RATE 74 mm/hr (0-20)
[2021-12-19] MEDS ORDERED: CEFEPIME 1 GM/100 ML BAG IVPB ONE (21:03)
[2021-12-20] MEDS ORDERED: oxyCODONE HCL 5 MG TABLET PO ONE (01:52)
[2021-12-20] MEDS ORDERED: oxyCODONE HCL 5 MG TABLET ONE (01:57)
[2021-12-20] MEDS ORDERED: CEFEPIME 1 GM in DEXTROSE 5%-WATER 100 ML IVPB SCH ×2 (07:00→10:00)
[2021-12-20] MEDS ORDERED: SODIUM CHLORIDE 1,000 ML IV SCH (07:15)
[2021-12-20 07:24] LABS: METHADONE, UR NEGATIVE (NEGATIVE); PHENCYCLIDINE,URINE NEGATIVE (NEGATIVE); URINE BARBITURATES NEGATIVE (NEGATIVE); URINE BENZODIAZEPINES NEGATIVE (NEGATIVE)
[2021-12-20 07:25] LABS: COCAINE, UR NEGATIVE (NEGATIVE)
[2021-12-20 07:44] LABS: OPIATES, URI POSITIVE (NEGATIVE); URINE AMPHETAMINES NEGATIVE (NEGATIVE)
[2021-12-20 08:27] LABS: PH,URINE 5.5 (5.0-8.0); URINE APPEARANCE CLEAR; URINE BILIRUBIN NEGATIVE (NEGATIVE); URINE COLOR YELLOW; URINE GLUCOSE (UA) NEGATIVE (NEGATIVE); URINE KETONE 2+ (NEGATIVE); URINE PROTEIN TRACE (NEGATIVE)
[2021-12-20 08:28] LABS: URINE LEUK ESTERASE NEGATIVE (NEGATIVE); URINE NITRITE NEGATIVE (NEGATIVE); URINE UROBILINOGEN 0.2 mg/dL (0.2-1.0)
[2021-12-20] MEDS ORDERED: CEFEPIME 1 GM/100 ML BAG IVPB ONE (08:38)
[2021-12-20] MEDS: NEBIVOLOL 5 MG TABLET (FP) PO SCH (09:07)
[2021-12-20] MEDS: RIVAROXABAN 2.5 MG TABLET PO SCH ×2 (09:08→23:06)
[2021-12-20] MEDS ORDERED: ACETAMINOPHEN 325 MG TABLET (FP) PO PRN (11:22)
[2021-12-20] MEDS ORDERED: POLYETHYLENE GLYCOL (HEALTHYLAX) 3350 17 GM PACKET ONE (12:30)
[2021-12-20] MEDS: POLYETHYLENE GLYCOL (HEALTHYLAX) 3350 17 GM PACKET PO SCH ×2 (12:40→23:06)
[2021-12-20] MEDS: CEFAZOLIN 1 GM in DEXTROSE 5%-WATER - 50 ML IVPB SCH (18:30)
[2021-12-20] MEDS ORDERED: ceFAZolin SODIUM 1 GM VIAL ONE (18:31)
[2021-12-20] MEDS ORDERED: VANCOMYCIN 1 GM in D5W (PRE-DOCKED) 1,000 MG/250 ML IVPB SCH (19:00)
[2021-12-20] MEDS ORDERED: ATORVASTATIN CA 40 MG TABLET (FP) PO SCH (22:00)
[2021-12-20] MEDS ORDERED: DOCUSATE SODIUM 100 MG CAPSULE (FP) PO SCH (22:00)
[2021-12-21] MEDS: CEFAZOLIN 1 GM in DEXTROSE 5%-WATER - 50 ML IVPB SCH ×3 (02:50→17:55)
[2021-12-21] MEDS ORDERED: HEPARIN NA (PORCINE) 5,000 UNITS/ML 1ML VIAL ONE ×2 (09:10→14:02)
[2021-12-21] MEDS ORDERED: LIDOCAINE HCL 1%, 10 MG/ML (20ML VIAL) ONE (09:10)
[2021-12-21] MEDS ORDERED: THROMBIN (BOVINE) 5,000 UNIT VIAL TP ONE (09:11)
[2021-12-21] MEDS: NEBIVOLOL 5 MG TABLET (FP) PO SCH (09:58)
[2021-12-21] MEDS: POLYETHYLENE GLYCOL (HEALTHYLAX) 3350 17 GM PACKET PO SCH ×2 (09:58→21:38)
[2021-12-21] MEDS: RIVAROXABAN 2.5 MG TABLET PO SCH (09:59)
[2021-12-21] MEDS ORDERED: amLODIPine BESYLATE 5 MG TABLET (FP) PO SCH (10:00)
[2021-12-21] MEDS ORDERED: cloNIDine HCL 0.1 MG TABLET PO SCH (10:00)
[2021-12-21 11:13] LABS: BASO % 0.7 % (0-2.0); EOS % 3.6 % (0-4.5); HEMATOCRIT 34.7 % (35.4-49); HEMOGLOBIN 11.5 GM/dL (11.7-16.9); LYMPH % 12.6 % (8-40); MCH 29.7 pg (25.7-33.7); MCHC 33.1 g/dl (32.0-35.9); MEAN CELL VOLUME 89.8 fl (80-96); MEAN PLT VOLUME 8.3 fl (7.5-11.1); MONO % 9.6 % (3.8-10.2); NEUT % 73.5 % (42.8-82.8); PLATELET COUNT 379 10^3/uL (134-434); RBC 3.86 M/mm3 (4.00-5.60); WHITE BLOOD COUNT 6.4 K/mm3 (4.0-10.0)
[2021-12-21 11:19] LABS: INR 1.26 (0.83-1.09); PROTHROMBIN TIME (PATIENT) 14.5 SEC (9.7-13.0)
[2021-12-21 11:40] LABS: ALBUMIN 2.9 g/dl (3.4-5.0); BLOOD UREA NITROGEN 11.6 mg/dL (7-18); CREATININE 0.8 mg/dL (0.55-1.3)
[2021-12-21 11:41] LABS: BILIRUBIN,TOTAL 0.4 mg/dL (0.2-1); CALCIUM 8.7 mg/dL (8.5-10.1); TOT PROT 6.5 g/dl (6.4-8.2)
[2021-12-21 11:42] LABS: MAGNESIUM 2.4 mg/dL (1.8-2.4)
[2021-12-21] MEDS ORDERED: MIDAZOLAM HCL 2 MG/2 ML SINGLE DOSE VIAL ONE (12:43)
[2021-12-21] MEDS ORDERED: ROCURONIUM BROMIDE 50 MG/5 ML SYRINGE ONE (12:43)
[2021-12-21] MEDS ORDERED: PROPOFOL 20 ML ONE ×2 (12:43→14:49)
[2021-12-21] MEDS ORDERED: LIDOCAINE HCL/PF 2% SDV 5ML VIAL ONE (12:43)
[2021-12-21] MEDS ORDERED: ceFAZolin SODIUM 1 GM VIAL IVPB ONE ×2 (13:40→14:11)
[2021-12-21] MEDS ORDERED: DEXAMETHASONE SOD PHOSPHATE 4 MG/1 ML VIAL ONE (14:04)
[2021-12-21] MEDS ORDERED: HYDROmorphone HCl 2 MG/ML VIAL ONE (14:57)
[2021-12-21] MEDS ORDERED: POVIDONE-IODINE OINTMENT 10% - 28.4 GM TUBE ONE (15:26)
[2021-12-21] MEDS ORDERED: LACTATED RINGERS SOLUTION 1,000 ML IV SCH (16:00)
[2021-12-21] MEDS ORDERED: ACETAMINOPHEN 325 MG TABLET (FP) PO PRN (16:11)
[2021-12-21] MEDS: LACTATED RINGERS SOLUTION 1,000 ML IV SCH (17:30)
[2021-12-21] MEDS: DOCUSATE SODIUM 100 MG CAPSULE (FP) PO SCH (21:38)
[2021-12-21] MEDS: ATORVASTATIN CA 40 MG TABLET (FP) PO SCH (21:38)
[2021-12-21] MEDS ORDERED: RIVAROXABAN 2.5 MG TABLET PO SCH (22:00)
[2021-12-21] MEDS: oxyCODONE HCL 5 MG TABLET PO PRN (22:12)
[2021-12-21] MEDS ORDERED: ACETAMINOPHEN 1000 MG/100 ML BAG IVPB ONE (23:32)
[2021-12-21] MEDS ORDERED: MELATONIN 1 MG TABLET PO ONE (23:45)
[2021-12-22] MEDS: CEFAZOLIN 1 GM in DEXTROSE 5%-WATER - 50 ML IVPB SCH ×3 (01:06→17:41)
[2021-12-22 07:03] LABS: BASO % 0.2 % (0-2.0); HEMATOCRIT 26.9 % (35.4-49); HEMOGLOBIN 8.8 GM/dL (11.7-16.9); LYMPH % 7.2 % (8-40); MCH 29.5 pg (25.7-33.7); MCHC 32.9 g/dl (32.0-35.9); MEAN CELL VOLUME 89.7 fl (80-96); MEAN PLT VOLUME 8.3 fl (7.5-11.1); NEUT % 85.6 % (42.8-82.8); PLATELET COUNT 353 10^3/uL (134-434); RDW 14.1 % (11.9-15.9); WHITE BLOOD COUNT 9.3 K/mm3 (4.0-10.0)
[2021-12-22 07:05] LABS: INR 1.3 (0.83-1.09)
[2021-12-22 07:06] LABS: ACTIVATED PTT 31.5 SECONDS (25.2-36.5)
[2021-12-22 07:29] LABS: ALBUMIN 2.4 g/dl (3.4-5.0); BLOOD UREA NITROGEN 12.4 mg/dL (7-18); CALCIUM 8.2 mg/dL (8.5-10.1)
[2021-12-22 07:30] LABS: MAGNESIUM 2.2 mg/dL (1.8-2.4)
[2021-12-22 07:32] LABS: PHOSPHOROUS 4.4 mg/dL (2.5-4.9)
[2021-12-22 07:33] LABS: CREATININE 0.9 mg/dL (0.55-1.3)
[2021-12-22 07:34] LABS: BILIRUBIN,TOTAL 0.2 mg/dL (0.2-1); TOT PROT 5.2 g/dl (6.4-8.2)
[2021-12-22] MEDS ORDERED: LIDOCAINE HCL 1%, 10 MG/ML (20ML VIAL) ONE (08:35)
[2021-12-22] MEDS ORDERED: THROMBIN (BOVINE) 5,000 UNIT VIAL TP ONE (08:35)
[2021-12-22] MEDS ORDERED: HEPARIN NA (PORCINE) 5,000 UNITS/ML 1ML VIAL ONE (08:36)
[2021-12-22] MEDS ORDERED: amLODIPine BESYLATE 5 MG TABLET (FP) PO SCH (10:00)
[2021-12-22] MEDS ORDERED: cloNIDine HCL 0.1 MG TABLET PO SCH (10:00)
[2021-12-22] MEDS ORDERED: NEBIVOLOL 5 MG TABLET (FP) PO SCH (10:00)
[2021-12-22] MEDS ORDERED: HEPARIN NA (PORCINE) 5,000 UNITS/ML 1ML VIAL SQ ONE ×2 (10:19→10:48)
[2021-12-22] MEDS ORDERED: MIDAZOLAM HCL 2 MG/2 ML SINGLE DOSE VIAL ONE (10:27)
[2021-12-22] MEDS ORDERED: PROPOFOL 20 ML ONE ×2 (10:27→10:29)
[2021-12-22] MEDS ORDERED: DEXAMETHASONE SOD PHOSPHATE 4 MG/1 ML VIAL ONE (10:32)
[2021-12-22] MEDS ORDERED: LIDOCAINE HCL/PF 2% SDV 5ML VIAL ONE (10:32)
[2021-12-22] MEDS ORDERED: ONDANSETRON 4 MG/2 ML VIAL ONE (10:32)
[2021-12-22] MEDS ORDERED: PHENYLEPHRINE HCL 10 MG/1 ML SINGLE DOSE VIAL ONE (11:56)
[2021-12-22] MEDS ORDERED: GENTAMICIN SO4 80 MG/2 ML VIAL ONE (12:15)
[2021-12-22] MEDS ORDERED: GENTAMICIN SO4 80 MG/2 ML VIAL IVPB ONE (12:17)
[2021-12-22] MEDS ORDERED: POVIDONE-IODINE OINTMENT 10% - 28.4 GM TUBE ONE (12:30)
[2021-12-22] MEDS ORDERED: HEPARIN NA (PORCINE) 5,000 UNITS/ML 1ML VIAL IVPUSH PRN ×2 (12:42)
[2021-12-22] MEDS: POLYETHYLENE GLYCOL (HEALTHYLAX) 3350 17 GM PACKET PO SCH ×2 (13:12→21:56)
[2021-12-22] MEDS: HEPARIN SOD,PORK IN 0.45% NACL 25,000 UNIT/500 ML INFUS.BAG IVPB SCH (13:35)
[2021-12-22] MEDS ORDERED: morphine SULFATE 4 MG/ML VIAL IVPUSH ONE (13:45)
[2021-12-22] MEDS ORDERED: HEPARIN NA (PORCINE) 5,000 UNITS/ML 1ML VIAL IVPUSH ONE (15:03)
[2021-12-22] MEDS: ATORVASTATIN CA 40 MG TABLET (FP) PO SCH (21:56)
[2021-12-22] MEDS: LACTATED RINGERS SOLUTION 1,000 ML IV SCH (21:57)
[2021-12-22] MEDS: CHLORHEXIDINE GLUCONATE 4% CLEANSER FOR DECOLONIZATION TP SCH (21:57)
[2021-12-22] MEDS: DOCUSATE SODIUM 100 MG CAPSULE (FP) PO SCH (21:57)
[2021-12-22] MEDS: MUPIROCIN 2% TOPICAL OINTMENT FOR DECOLONIZATION NS SCH (21:57)
[2021-12-22] MEDS ORDERED: MELATONIN 5 MG TABLETS PO ONE (22:00)
[2021-12-22] MEDS: morphine SULFATE 4 MG/ML VIAL IVPUSH PRN (23:24)
[2021-12-23] MEDS: CEFAZOLIN 1 GM in DEXTROSE 5%-WATER - 50 ML IVPB SCH ×3 (01:34→20:04)
[2021-12-23] MEDS: oxyCODONE HCL 5 MG TABLET PO PRN ×2 (04:40→16:49)
[2021-12-23] MEDS: morphine SULFATE 4 MG/ML VIAL IVPUSH PRN ×3 (06:00→20:05)
[2021-12-23] MEDS ORDERED: ACETAMINOPHEN 325 MG TABLET (FP) PO PRN (07:26)
[2021-12-23] MEDS: NEBIVOLOL 5 MG TABLET (FP) PO SCH (09:38)
[2021-12-23] MEDS: POLYETHYLENE GLYCOL (HEALTHYLAX) 3350 17 GM PACKET PO SCH ×2 (09:39→21:08)
[2021-12-23] MEDS: amLODIPine BESYLATE 5 MG TABLET (FP) PO SCH (09:39)
[2021-12-23] MEDS: cloNIDine HCL 0.1 MG TABLET PO SCH (09:39)
[2021-12-23] MEDS: MUPIROCIN 2% TOPICAL OINTMENT FOR DECOLONIZATION NS SCH ×2 (09:39→21:07)
[2021-12-23] MEDS: LACTATED RINGERS SOLUTION 1,000 ML IV SCH (09:40)
[2021-12-23 12:04] LABS: BASO % 0.5 % (0-2.0); EOS % 0.3 % (0-4.5); HEMATOCRIT 31.6 % (35.4-49); HEMOGLOBIN 11.1 GM/dL (11.7-16.9); LYMPH % 12.5 % (8-40); MCH 31.3 pg (25.7-33.7); MCHC 35.1 g/dl (32.0-35.9); MEAN CELL VOLUME 89.1 fl (80-96); MEAN PLT VOLUME 7.9 fl (7.5-11.1); MONO % 9.4 % (3.8-10.2); NEUT % 77.3 % (42.8-82.8); PLATELET COUNT 312 10^3/uL (134-434); RBC 3.55 M/mm3 (4.00-5.60); RDW 13.7 % (11.9-15.9); WHITE BLOOD COUNT 10.3 K/mm3 (4.0-10.0)
[2021-12-23 12:08] LABS: INR 1.13 (0.83-1.09)
[2021-12-23 12:12] LABS: CALCIUM 8.3 mg/dL (8.5-10.1)
[2021-12-23 12:13] LABS: ALBUMIN 2.4 g/dl (3.4-5.0); BLOOD UREA NITROGEN 13.1 mg/dL (7-18); MAGNESIUM 2.2 mg/dL (1.8-2.4)
[2021-12-23 12:16] LABS: CREATININE 0.9 mg/dL (0.55-1.3)
[2021-12-23 12:17] LABS: BILIRUBIN,TOTAL 0.5 mg/dL (0.2-1)
[2021-12-23 12:18] LABS: TOT PROT 5.2 g/dl (6.4-8.2)
[2021-12-23] MEDS ORDERED: NAPH,MB-DB/K PH,MBDB POWDER PACKET PO ONE (13:59)
[2021-12-23] MEDS: HEPARIN SOD,PORK IN 0.45% NACL 25,000 UNIT/500 ML INFUS.BAG IVPB SCH (16:48)
[2021-12-23] MEDS: PANTOPRAZOLE SODIUM 40 MG VIAL IVPUSH SCH (16:49)
[2021-12-23] MEDS: MELATONIN 5 MG TABLETS PO PRN (20:05)
[2021-12-23] MEDS: CHLORHEXIDINE GLUCONATE 4% CLEANSER FOR DECOLONIZATION TP SCH (21:08)
[2021-12-23] MEDS: ATORVASTATIN CA 40 MG TABLET (FP) PO SCH (21:08)
[2021-12-23] MEDS: DOCUSATE SODIUM 100 MG CAPSULE (FP) PO SCH (21:08)
[2021-12-24] MEDS: morphine SULFATE 4 MG/ML VIAL IVPUSH PRN ×3 (00:36→20:04)
[2021-12-24] MEDS: CEFAZOLIN 1 GM in DEXTROSE 5%-WATER - 50 ML IVPB SCH ×3 (01:17→18:04)
[2021-12-24] MEDS: oxyCODONE HCL 5 MG TABLET PO PRN ×2 (02:25→20:03)
[2021-12-24] MEDS: LACTATED RINGERS SOLUTION 1,000 ML IV SCH ×3 (03:10→20:01)
[2021-12-24] MEDS ORDERED: THROMBIN (BOVINE) 5,000 UNIT VIAL TP ONE (07:18)
[2021-12-24] MEDS ORDERED: PAPAVERINE HCL 30 MG/1 ML 10 ML VIAL NR ONE (07:18)
[2021-12-24] MEDS ORDERED: HEPARIN NA (PORCINE) 5,000 UNITS/ML 1ML VIAL ONE ×2 (07:20→10:50)
[2021-12-24 08:08] LABS: BASO % 0.7 % (0-2.0); EOS % 2.7 % (0-4.5); LYMPH % 21.8 % (8-40); MCH 30.7 pg (25.7-33.7); MCHC 34.2 g/dl (32.0-35.9); MEAN CELL VOLUME 89.8 fl (80-96); NEUT % 62.8 % (42.8-82.8); PLATELET COUNT 342 10^3/uL (134-434); WHITE BLOOD COUNT 7.9 K/mm3 (4.0-10.0)
[2021-12-24 08:15] LABS: ALBUMIN 2.4 g/dl (3.4-5.0); BLOOD UREA NITROGEN 9.1 mg/dL (7-18); CALCIUM 8.5 mg/dL (8.5-10.1)
[2021-12-24 08:17] LABS: INR 1.13 (0.83-1.09)
[2021-12-24 08:19] LABS: BILIRUBIN,TOTAL 0.3 mg/dL (0.2-1); TOT PROT 5.3 g/dl (6.4-8.2)
[2021-12-24 08:21] LABS: PHOSPHOROUS 2.6 mg/dL (2.5-4.9)
[2021-12-24 08:22] LABS: CREATININE 0.8 mg/dL (0.55-1.3)
[2021-12-24] MEDS ORDERED: SUCCINYLCHOLINE CHLORIDE 200 MG/10 ML SYRINGE ONE (09:15)
[2021-12-24] MEDS ORDERED: MIDAZOLAM HCL 2 MG/2 ML SINGLE DOSE VIAL ONE (09:15)
[2021-12-24] MEDS ORDERED: PROPOFOL 20 ML ONE (09:15)
[2021-12-24] MEDS ORDERED: LIDOCAINE HCL/PF 2% SDV 5ML VIAL ONE (09:16)
[2021-12-24] MEDS: NEBIVOLOL 5 MG TABLET (FP) PO SCH (09:24)
[2021-12-24] MEDS: amLODIPine BESYLATE 5 MG TABLET (FP) PO SCH (09:24)
[2021-12-24] MEDS: cloNIDine HCL 0.1 MG TABLET PO SCH (09:24)
[2021-12-24] MEDS ORDERED: HEPARIN NA (PORCINE) 5,000 UNITS/ML 1ML VIAL SQ ONE ×3 (09:29→10:20)
[2021-12-24] MEDS ORDERED: ROCURONIUM BROMIDE 50 MG/5 ML SYRINGE ONE (10:27)
[2021-12-24] MEDS ORDERED: VANCOMYCIN 1,000 MG VIAL (RESTRICTED TO ID ONLY) ONE (10:33)
[2021-12-24] MEDS ORDERED: VANCOMYCIN 1,000 MG VIAL (RESTRICTED TO ID ONLY) IVPB ONE (10:35)
[2021-12-24] MEDS ORDERED: ceFAZolin SODIUM 1 GM VIAL IVPB ONE (10:35)
[2021-12-24] MEDS ORDERED: IOHEXOL 300 MG/ML INFUS..BTL IV ONE ×2 (11:25)
[2021-12-24] MEDS ORDERED: NEOSTIGMINE METHYLSULFATE 0.5 MG/ML - 10 ML MDV ONE (11:58)
[2021-12-24] MEDS ORDERED: GLYCOPYRROLATE 0.2 MG/1 ML VIAL ONE ×2 (11:58)
[2021-12-24] MEDS: POLYETHYLENE GLYCOL (HEALTHYLAX) 3350 17 GM PACKET PO SCH ×2 (13:59→22:23)
[2021-12-24] MEDS: PANTOPRAZOLE SODIUM 40 MG VIAL IVPUSH SCH (14:27)
[2021-12-24] MEDS: MUPIROCIN 2% TOPICAL OINTMENT FOR DECOLONIZATION NS SCH ×2 (16:22→22:22)
[2021-12-24 16:39] LABS: INR 1.24 (0.83-1.09); PROTHROMBIN TIME (PATIENT) 14.3 SEC (9.7-13.0)
[2021-12-24 16:42] LABS: ACTIVATED PTT 140.2 SECONDS (25.2-36.5)
[2021-12-24] MEDS: HEPARIN SOD,PORK IN 0.45% NACL 25,000 UNIT/500 ML INFUS.BAG IVPB SCH (19:59)
[2021-12-24] MEDS: NICOTINE 7 MG/24 HOURS TOPICAL PATCH TD SCH (20:05)
[2021-12-24] MEDS: MELATONIN 5 MG TABLETS PO PRN (22:22)
[2021-12-24] MEDS: ATORVASTATIN CA 40 MG TABLET (FP) PO SCH (22:22)
[2021-12-24] MEDS: CHLORHEXIDINE GLUCONATE 4% CLEANSER FOR DECOLONIZATION TP SCH (22:24)
[2021-12-24] MEDS: DOCUSATE SODIUM 100 MG CAPSULE (FP) PO SCH (22:50)
[2021-12-25] MEDS: morphine SULFATE 4 MG/ML VIAL IVPUSH PRN ×4 (00:10→20:40)
[2021-12-25] MEDS ORDERED: ACETAMINOPHEN 325 MG TABLET (FP) PO PRN (01:19)
[2021-12-25] MEDS ORDERED: MELATONIN 5 MG TABLETS PO PRN (01:19)
[2021-12-25] MEDS ORDERED: HEPARIN NA (PORCINE) 5,000 UNITS/ML 1ML VIAL IVPUSH PRN ×3 (01:19)
[2021-12-25] MEDS: HEPARIN SOD,PORK IN 0.45% NACL 25,000 UNIT/500 ML INFUS.BAG IVPB SCH (01:45)
[2021-12-25] MEDS: LACTATED RINGERS SOLUTION 1,000 ML IV SCH (01:45)
[2021-12-25] MEDS: CEFAZOLIN 1 GM in DEXTROSE 5%-WATER - 50 ML IVPB SCH ×3 (01:46→17:34)
[2021-12-25] MEDS: oxyCODONE HCL 5 MG TABLET PO PRN ×4 (02:16→22:44)
[2021-12-25 09:41] LABS: BASO % 0.9 % (0-2.0); HEMATOCRIT 31.1 % (35.4-49); HEMOGLOBIN 10.3 GM/dL (11.7-16.9); LYMPH % 13.6 % (8-40); MCH 29.8 pg (25.7-33.7); MEAN CELL VOLUME 90.2 fl (80-96); MONO % 10.1 % (3.8-10.2); NEUT % 72.4 % (42.8-82.8); PLATELET COUNT 324 10^3/uL (134-434); RBC 3.45 M/mm3 (4.00-5.60); RDW 14.1 % (11.9-15.9); WHITE BLOOD COUNT 8.6 K/mm3 (4.0-10.0)
[2021-12-25 09:59] LABS: INR 1.28 (0.83-1.09); PROTHROMBIN TIME (PATIENT) 14.8 SEC (9.7-13.0)
[2021-12-25] MEDS ORDERED: NEBIVOLOL 5 MG TABLET (FP) PO SCH (10:00)
[2021-12-25] MEDS ORDERED: PANTOPRAZOLE SODIUM 40 MG VIAL IVPUSH SCH (10:00)
[2021-12-25] MEDS ORDERED: amLODIPine BESYLATE 5 MG TABLET (FP) PO SCH (10:00)
[2021-12-25] MEDS ORDERED: cloNIDine HCL 0.1 MG TABLET PO SCH (10:00)
[2021-12-25 10:14] LABS: ALBUMIN 2.5 g/dl (3.4-5.0); CALCIUM 8.9 mg/dL (8.5-10.1)
[2021-12-25 10:15] LABS: BLOOD UREA NITROGEN 9.8 mg/dL (7-18)
[2021-12-25 10:17] LABS: CREATININE 0.8 mg/dL (0.55-1.3)
[2021-12-25 10:19] LABS: BILIRUBIN,TOTAL 0.3 mg/dL (0.2-1); TOT PROT 5.3 g/dl (6.4-8.2)
[2021-12-25] MEDS: POLYETHYLENE GLYCOL (HEALTHYLAX) 3350 17 GM PACKET PO SCH ×3 (10:26→22:56)
[2021-12-25] MEDS: NICOTINE 7 MG/24 HOURS TOPICAL PATCH TD SCH (10:26)
[2021-12-25] MEDS: MUPIROCIN 2% TOPICAL OINTMENT FOR DECOLONIZATION NS SCH ×2 (10:26→21:20)
[2021-12-25] MEDS: CHLORHEXIDINE GLUCONATE 4% CLEANSER FOR DECOLONIZATION TP SCH (21:21)
[2021-12-25] MEDS: DOCUSATE SODIUM 100 MG CAPSULE (FP) PO SCH ×2 (21:21→22:56)
[2021-12-25] MEDS ORDERED: ATORVASTATIN CA 40 MG TABLET (FP) PO SCH (22:00)
[2021-12-26] MEDS: morphine SULFATE 4 MG/ML VIAL IVPUSH PRN ×4 (00:44→22:20)
[2021-12-26] MEDS: LACTATED RINGERS SOLUTION 1,000 ML IV SCH (00:46)
[2021-12-26] MEDS: HEPARIN SOD,PORK IN 0.45% NACL 25,000 UNIT/500 ML INFUS.BAG IVPB SCH ×3 (00:46→18:24)
[2021-12-26] MEDS ORDERED: MELATONIN 5 MG TABLETS PO PRN (00:54)
[2021-12-26] MEDS ORDERED: HEPARIN NA (PORCINE) 5,000 UNITS/ML 1ML VIAL IVPUSH PRN ×4 (00:54)
[2021-12-26] MEDS ORDERED: CEFAZOLIN 1 GM in DEXTROSE 5%-WATER - 50 ML IVPB SCH (02:00)
[2021-12-26] MEDS: amLODIPine BESYLATE 5 MG TABLET (FP) PO SCH (09:34)
[2021-12-26] MEDS: cloNIDine HCL 0.1 MG TABLET PO SCH (09:35)
[2021-12-26] MEDS: NEBIVOLOL 10 MG TABLET (FP) PO SCH (09:36)
[2021-12-26] MEDS: POLYETHYLENE GLYCOL (HEALTHYLAX) 3350 17 GM PACKET PO SCH ×2 (09:36→22:15)
[2021-12-26] MEDS: NICOTINE 7 MG/24 HOURS TOPICAL PATCH TD SCH (09:36)
[2021-12-26] MEDS: PANTOPRAZOLE SODIUM 40 MG VIAL IVPUSH SCH (09:36)
[2021-12-26 09:49] LABS: HEMATOCRIT 30.4 % (35.4-49); HEMOGLOBIN 10.5 GM/dL (11.7-16.9); MCH 31.2 pg (25.7-33.7); MCHC 34.4 g/dl (32.0-35.9); MEAN CELL VOLUME 90.6 fl (80-96); MEAN PLT VOLUME 7.9 fl (7.5-11.1); PLATELET COUNT 283 10^3/uL (134-434); RBC 3.36 M/mm3 (4.00-5.60); RDW 14.2 % (11.9-15.9); WHITE BLOOD COUNT 12.9 K/mm3 (4.0-10.0)
[2021-12-26] MEDS ORDERED: MUPIROCIN 2% TOPICAL OINTMENT FOR DECOLONIZATION NS SCH (10:00)
[2021-12-26] MEDS: oxyCODONE HCL 5 MG TABLET PO PRN (12:45)
[2021-12-26 15:42] VITALS: BMI 20.5
[2021-12-26] MEDS ORDERED: CHLORHEXIDINE GLUCONATE 4% CLEANSER FOR DECOLONIZATION TP SCH (22:00)
[2021-12-26] MEDS: DOCUSATE SODIUM 100 MG CAPSULE (FP) PO SCH (22:14)
[2021-12-26] MEDS: ATORVASTATIN CA 40 MG TABLET (FP) PO SCH (22:15)
[2021-12-27] MEDS: HEPARIN SOD,PORK IN 0.45% NACL 25,000 UNIT/500 ML INFUS.BAG IVPB SCH ×2 (07:44→16:20)
[2021-12-27] MEDS: PANTOPRAZOLE SODIUM 40 MG VIAL IVPUSH SCH (10:40)
[2021-12-27] MEDS: POLYETHYLENE GLYCOL (HEALTHYLAX) 3350 17 GM PACKET PO SCH ×2 (10:40→21:38)
[2021-12-27] MEDS: cloNIDine HCL 0.1 MG TABLET PO SCH (10:40)
[2021-12-27] MEDS: amLODIPine BESYLATE 5 MG TABLET (FP) PO SCH (10:40)
[2021-12-27] MEDS: NICOTINE 7 MG/24 HOURS TOPICAL PATCH TD SCH (10:41)
[2021-12-27] MEDS: NEBIVOLOL 10 MG TABLET (FP) PO SCH (10:41)
[2021-12-27] MEDS: oxyCODONE HCL 5 MG TABLET PO PRN ×2 (11:07→18:27)
[2021-12-27] MEDS: ACETAMINOPHEN 325 MG TABLET (FP) PO PRN ×2 (11:09→18:28)
[2021-12-27] MEDS: morphine SULFATE 4 MG/ML VIAL IVPUSH PRN ×2 (15:17→21:38)
[2021-12-27] MEDS: HEPARIN NA (PORCINE) 5,000 UNITS/ML 1ML VIAL IVPUSH PRN (16:22)
[2021-12-27] MEDS: ATORVASTATIN CA 40 MG TABLET (FP) PO SCH (21:38)
[2021-12-27] MEDS: DOCUSATE SODIUM 100 MG CAPSULE (FP) PO SCH (21:38)
[2021-12-28 09:34] LABS: BASO % 0.6 % (0-2.0); EOS % 1.7 % (0-4.5); HEMATOCRIT 28.4 % (35.4-49); HEMOGLOBIN 9.5 GM/dL (11.7-16.9); MCH 29.8 pg (25.7-33.7); MCHC 33.4 g/dl (32.0-35.9); MEAN CELL VOLUME 89.3 fl (80-96); MEAN PLT VOLUME 9.3 fl (7.5-11.1); MONO % 10.3 % (3.8-10.2); NEUT % 81.4 % (42.8-82.8); PLATELET COUNT 344 10^3/uL (134-434); RBC 3.18 M/mm3 (4.00-5.60); RDW 14.3 % (11.9-15.9); WHITE BLOOD COUNT 11.6 K/mm3 (4.0-10.0)
[2021-12-28 09:57] LABS: ALBUMIN 2.3 g/dl (3.4-5.0); BLOOD UREA NITROGEN 10.3 mg/dL (7-18)
[2021-12-28 10:00] LABS: CREATININE 0.7 mg/dL (0.55-1.3)
[2021-12-28 10:02] LABS: BILIRUBIN,TOTAL 0.4 mg/dL (0.2-1); TOT PROT 5.5 g/dl (6.4-8.2)
[2021-12-28] MEDS: amLODIPine BESYLATE 5 MG TABLET (FP) PO SCH (10:04)
[2021-12-28] MEDS: HEPARIN SOD,PORK IN 0.45% NACL 25,000 UNIT/500 ML INFUS.BAG IVPB SCH (10:04)
[2021-12-28] MEDS: NICOTINE 7 MG/24 HOURS TOPICAL PATCH TD SCH (10:04)
[2021-12-28] MEDS: cloNIDine HCL 0.1 MG TABLET PO SCH (10:04)
[2021-12-28] MEDS: POLYETHYLENE GLYCOL (HEALTHYLAX) 3350 17 GM PACKET PO SCH ×2 (10:04→22:13)
[2021-12-28] MEDS: HEPARIN NA (PORCINE) 5,000 UNITS/ML 1ML VIAL IVPUSH PRN (10:04)
[2021-12-28] MEDS: oxyCODONE HCL 5 MG TABLET PO PRN ×2 (10:05→18:06)
[2021-12-28] MEDS: PANTOPRAZOLE 40 MG TABLET PO SCH (10:08)
[2021-12-28] MEDS: NEBIVOLOL 10 MG TABLET (FP) PO SCH (10:31)
[2021-12-28] MEDS: DOCUSATE SODIUM 100 MG CAPSULE (FP) PO SCH (22:12)
[2021-12-28] MEDS: morphine SULFATE 4 MG/ML VIAL IVPUSH PRN (22:13)
[2021-12-28] MEDS: RIVAROXABAN 2.5 MG TABLET PO SCH (22:13)
[2021-12-28] MEDS: ATORVASTATIN CA 40 MG TABLET (FP) PO SCH (22:13)
[2021-12-29] MEDS ORDERED: traMADol HCL 50 MG TABLET PO ONE (01:59)
[2021-12-29 07:55] VITALS: RESP 18
[2021-12-29] MEDS ORDERED: BACITRACIN 15 GM TUBE TOPICAL OINTMENT TP SCH (10:00)
[2021-12-29] MEDS: amLODIPine BESYLATE 5 MG TABLET (FP) PO SCH (10:48)
[2021-12-29] MEDS: NEBIVOLOL 10 MG TABLET (FP) PO SCH (10:48)
[2021-12-29] MEDS: PANTOPRAZOLE 40 MG TABLET PO SCH (10:48)
[2021-12-29] MEDS: cloNIDine HCL 0.1 MG TABLET PO SCH (10:48)
[2021-12-29] MEDS: ACETAMINOPHEN 325 MG TABLET (FP) PO PRN (10:49)
[2021-12-29] MEDS: RIVAROXABAN 2.5 MG TABLET PO SCH (10:49)
[2021-12-29] MEDS: POLYETHYLENE GLYCOL (HEALTHYLAX) 3350 17 GM PACKET PO SCH (11:25)
[2021-12-29] MEDS: NICOTINE 7 MG/24 HOURS TOPICAL PATCH TD SCH (11:25)
[2021-12-29 13:58] VITALS: TEMP 98
[2021-12-29 14:50] VITALS: BP 111/54; PULSE 65
== END 2021-12-29 14:23 | disposition home health service (06) | DRG 252 ==
LOC: JER 15:01 → JERBED 12-20 02:14 → J7W 12-20 21:07 → JICU 12-21 17:36 → J8W 12-25 23:48
PROVIDERS: ADMIT Internal Medicine; ATTEND Nurse Practitioner Acute Care
PROC: 06BP0ZZ Excision of Right Saphenous Vein, Open Approach (ICD-10-PCS; 2021-12-22)
PROC: 06WY07Z Revision of Autologous Tissue Substitute in Lower Vein, Open Approach (ICD-10-PCS; 2021-12-22)
PROC: 061M0JY Bypass Right Femoral Vein to Lower Vein with Synthetic Substitute, Open Approach (ICD-10-PCS; 2021-12-22)
PROC: 30233N1 Transfusion of Nonautologous Red Blood Cells into Peripheral Vein, Percutaneous Approach (ICD-10-PCS; 2021-12-22)
PROC: 041K09N Bypass Right Femoral Artery to Posterior Tibial Artery with Autologous Venous Tissue, Open Approach (ICD-10-PCS; 2021-12-24)
PROC: 06C Lower Veins, Extirpation (ICD-10-PCS; 2021-12-24)
PROC: 047 Lower Arteries, Dilation (ICD-10-PCS; 2021-12-24)
PROC: 3E05317 Introduction of Other Thrombolytic into Peripheral Artery, Percutaneous Approach (ICD-10-PCS; 2021-12-24)
PROC: B41DYZZ Fluoroscopy of Aorta and Bilateral Lower Extremity Arteries using Other Contrast (ICD-10-PCS; 2021-12-24)
PROC: 041K0JN Bypass Right Femoral Artery to Posterior Tibial Artery with Synthetic Substitute, Open Approach (ICD-10-PCS; principal; 2021-12-24 09:30)
DX: I96 Gangrene, not elsewhere classified (principal); U07.1 COVID-19; L03.115 Cellulitis of right lower limb; I69.354 Hemiplegia and hemiparesis following cerebral infarction affecting left non-dominant side; L97.919 Non-pressure chronic ulcer of unspecified part of right lower leg with unspecified severity; I83.019 Varicose veins of right lower extremity with ulcer of unspecified site; D64.9 Anemia, unspecified; I25.10 Atherosclerotic heart disease of native coronary artery without angina pectoris; I10 Essential (primary) hypertension; E78.5 Hyperlipidemia, unspecified; F17.210 Nicotine dependence, cigarettes, uncomplicated
CPT/HCPCS: 0241U-QW; 36415; 36430; 71045-TC-FY; 73706-TC-RT; 76000-TC-FY; 80053; 80061; 80307; 81003; 83735; 84100; 85025; 85027; 85610; 85651; 85730; 86140; 86850; 86900; 86901; 86922; 87040; 87086; 93005; 93010; 94010; 94760; 97161-GP; 99285-25; C1757; C1768; J1644; P9058; Q9967

== ENCOUNTER 2022-01-12 12:40 | Inpatient (IN) | payer OTHER ==
[2022-01-12] MEDS ORDERED: morphine CARPU-JECT 2 MG/1 ML DISP.SYRIN IVPUSH ONE (14:17)
[2022-01-12] MEDS ORDERED: morphine SULFATE 4 MG/ML VIAL ONE (14:20)
[2022-01-12 14:32] LABS: HEMOGLOBIN 10.3 G/dL (11.7-16.9); MCH 31.4 pg (25.7-33.7); MCHC 34.2 g/dl (32.0-35.9); MEAN CELL VOLUME 91.8 fl (80-96); MEAN PLT VOLUME 7.9 fl (7.5-11.1); PLATELET COUNT 434.8 10^3/uL (134-434); RBC 3.27 10^6/uL (4.00-5.60); RDW 15.5 % (11.9-15.9); WHITE BLOOD COUNT 7.1 10^3/uL (4.0-10.8)
[2022-01-12 14:33] LABS: INR 1.28 (0.83-1.09); PROTHROMBIN TIME (PATIENT) 14.8 SEC (9.7-13.0)
[2022-01-12 14:36] LABS: ACTIVATED PTT 35.6 SECONDS (25.2-36.5)
[2022-01-12] MEDS ORDERED: ETOMIDATE 20 MG/10 ML VIAL IVPUSH ONE (14:36)
[2022-01-12] MEDS ORDERED: ROCURONIUM BROMIDE 50 MG/5 ML SYRINGE ONE (14:37)
[2022-01-12] MEDS ORDERED: SUCCINYLCHOLINE CHLORIDE 200 MG/10 ML SYRINGE ONE (14:37)
[2022-01-12] MEDS ORDERED: PROPOFOL 20 ML ONE (14:37)
[2022-01-12] MEDS ORDERED: MIDAZOLAM HCL 2 MG/2 ML SINGLE DOSE VIAL ONE (14:37)
[2022-01-12 14:41] LABS: ALBUMIN 3.3 g/dl (3.4-5.0); BILIRUBIN,TOTAL 0.7 mg/dl (0.2-1); CALCIUM 8.9 mg/dl (8.5-10); CREATININE 0.9 mg/dl (0.55-1.3); TOT PROT 6.7 g/dl (6.4-8.2)
[2022-01-12 15:26] LABS: ERYTHROCYTE SEDIMENTATION RATE 43 mm/hr (0-20)
[2022-01-12 15:50] LABS: ANISOCYTOSIS 1+; PLATELET ESTIMATE INCREASED
[2022-01-12] MEDS ORDERED: CEFAZOLIN 1 GM in DEXTROSE 5%-WATER - 50 ML IVPB ONE (18:18)
[2022-01-12] MEDS ORDERED: ceFAZolin SODIUM 1 GM VIAL ONE (18:34)
[2022-01-12] MEDS: ATORVASTATIN CA 40 MG TABLET (FP) PO SCH (23:47)
[2022-01-13] MEDS: ASPIRIN 81 MG CHEWABLE TABLETS PO SCH (11:10)
[2022-01-13] MEDS: CEFTRIAXONE 1 GM in DEXTROSE 5%-WATER - 50 ML IVPB SCH (11:10)
[2022-01-13] MEDS: PANTOPRAZOLE 40 MG TABLET PO SCH (11:10)
[2022-01-13] MEDS: TIOTROPIUM BROMIDE 2.5 MCG (SPIRIVA) RESPIMAT INHALER IH SCH (11:18)
[2022-01-13] MEDS: NEBIVOLOL 10 MG TABLET (FP) PO SCH (11:18)
[2022-01-13] MEDS ORDERED: LIDOCAINE HCL 1%, 10 MG/ML (20ML VIAL) ONE (13:53)
[2022-01-13] MEDS ORDERED: PROPOFOL 60 ML ONE (14:08)
[2022-01-13] MEDS ORDERED: LIDOCAINE HCL 2% 100 MG/5 ML DISP.SYRIN ONE (14:08)
[2022-01-13] MEDS ORDERED: MIDAZOLAM HCL 2 MG/2 ML SINGLE DOSE VIAL ONE (14:09)
[2022-01-13] MEDS ORDERED: FENTANYL CITRATE/PF 50 MCG/ML VIAL ONE (14:09)
[2022-01-13] MEDS ORDERED: ceFAZolin SODIUM 1 GM VIAL ONE (14:37)
[2022-01-13] MEDS ORDERED: LIDOCAINE HCL 1%, 10 MG/ML (20ML VIAL) NR ONE (14:38)
[2022-01-13] MEDS ORDERED: RIVAROXABAN 20 MG TABLET PO SCH (18:00)
[2022-01-13 20:42] VITALS: RESP 18
[2022-01-13] MEDS: ATORVASTATIN CA 40 MG TABLET (FP) PO SCH (21:23)
[2022-01-14 10:24] LABS: BASO % 0.8 % (0-2.0); EOS % 1.9 % (0-4.5); HEMATOCRIT 30.9 % (35.4-49); HEMOGLOBIN 10.5 GM/dL (11.7-16.9); LYMPH % 14.9 % (8-40); MCH 30.3 pg (25.7-33.7); MEAN PLT VOLUME 7.8 fl (7.5-11.1); MONO % 9.6 % (3.8-10.2); NEUT % 72.8 % (42.8-82.8); PLATELET COUNT 404 10^3/uL (134-434); RBC 3.47 M/mm3 (4.00-5.60); RDW 15.2 % (11.9-15.9); WHITE BLOOD COUNT 6.4 K/mm3 (4.0-10.0)
[2022-01-14 11:12] LABS: ALBUMIN 2.8 g/dl (3.4-5.0)
[2022-01-14 11:13] LABS: CALCIUM 8.9 mg/dL (8.5-10.1)
[2022-01-14 11:14] LABS: MAGNESIUM 2.1 mg/dL (1.8-2.4)
[2022-01-14 11:15] LABS: CREATININE 0.8 mg/dL (0.55-1.3)
[2022-01-14 11:17] LABS: BILIRUBIN,TOTAL 0.2 mg/dL (0.2-1); PHOSPHOROUS 3.6 mg/dL (2.5-4.9); TOT PROT 6.3 g/dl (6.4-8.2)
[2022-01-14] MEDS: ASPIRIN 81 MG CHEWABLE TABLETS PO SCH (11:20)
[2022-01-14] MEDS: PANTOPRAZOLE 40 MG TABLET PO SCH (11:20)
[2022-01-14] MEDS: CEFTRIAXONE 1 GM in DEXTROSE 5%-WATER - 50 ML IVPB SCH (11:20)
[2022-01-14] MEDS: NEBIVOLOL 10 MG TABLET (FP) PO SCH (11:20)
[2022-01-14] MEDS: TIOTROPIUM BROMIDE 2.5 MCG (SPIRIVA) RESPIMAT INHALER IH SCH (11:21)
[2022-01-14 15:41] VITALS: BMI 19.1
[2022-01-14 16:13] VITALS: BP 154/68; PULSE 84; TEMP 98.3
== END 2022-01-14 16:50 | disposition left against medical advice (07) | DRG 862 ==
LOC: FER 12:40 → J8W 19:51
PROVIDERS: ADMIT Surgery Vascular Surgery; ATTEND Nurse Practitioner Acute Care
DX: T81.49XA Infection following a procedure, other surgical site, initial encounter (principal); E43 Unspecified severe protein-calorie malnutrition; U07.1 COVID-19; I69.354 Hemiplegia and hemiparesis following cerebral infarction affecting left non-dominant side; Z68.1 Body mass index [BMI] 19.9 or less, adult; L97.818 Non-pressure chronic ulcer of other part of right lower leg with other specified severity; I25.10 Atherosclerotic heart disease of native coronary artery without angina pectoris; E78.5 Hyperlipidemia, unspecified; I73.9 Peripheral vascular disease, unspecified; I10 Essential (primary) hypertension; M79.661 Pain in right lower leg; Y83.8 Other surgical procedures as the cause of abnormal reaction of the patient, or of later complication, without mention of misadventure at the time of the procedure; Z79.01 Long term (current) use of anticoagulants; Z79.82 Long term (current) use of aspirin
CPT/HCPCS: 0241U-QW; 36415; 73630-TC-RT-FY; 80053; 82962; 83735; 83880; 84100; 84443; 85025; 85027; 85610; 85651; 85730; 86140; 86850; 86900; 86901; 99285-25; Q4121